=== PATIENT | female | born 1990 | race Caucasian/White ===

== ENCOUNTER 2022-09-11 16:27 | Outpatient (REF) | payer MEDICAID, SELFPAY | END 2022-09-11 16:28 | disposition home or self-care (01) | LOC: LBN 16:27 | PROVIDERS: Visit Provider Family Medicine | DX: R82.998 Other abnormal findings in urine (principal); R39.89 Other symptoms and signs involving the genitourinary system; R11.0 Nausea | CPT/HCPCS: 87086 ==

== ENCOUNTER 2022-09-20 11:00 | Outpatient (REF) | payer MEDICAID, SELFPAY | END 2022-09-20 11:01 | disposition home or self-care (01) | LOC: LBN 11:00 | PROVIDERS: Visit Provider Nurse Practitioner Family | DX: N76.0 Acute vaginitis (principal) | CPT/HCPCS: 87480; 87510; 87660 ==

== ENCOUNTER 2022-10-03 17:47 | Emergency (ER) | payer MEDICAID, SELFPAY ==
--- NOTE | 2022-10-03 17:45 | RT.EKG_ITS ---
APPROVED REPORT Exam: Resting ECG Reason for Exam: sob Patient Location: E HR:55 bpm ECG Measurements Heart Rate 55 AXIS OK 132 P 51 QRSd 77 QRS 59 QT 428 T -2 QTc 411 Conclusion Sinus bradycardia...rate< 60
[2022-10-03 18:01] VITALS: BP 106/67; PULSE 59; RESP 20; TEMP 36.9; O2SAT 99
[2022-10-03 18:16] VITALS: RESP 18
--- NOTE | 2022-10-03 18:24 | ED.GENADUL_ITS ---
Discharge Plan Disposition Patient Disposition: Home Condition: Stable Discharge Details Clinical Impression: URI (upper respiratory infection) Primary Care Provider: Shashi Beyer ED Provider: Alayna Pinto Home Meds and New Rx's Prescriptions: New metoclopramide HCl [Reglan] 5 mg tablet 5 mg PO QACHS PRN (Reason: nausea and vomiting) 7 Days Qty: 14 0RF Rx Instructions: Take one tablet by mouth before meals and at bedtime as needed for nausea. amoxicillin 500 mg capsule 500 mg PO BID 5 Days Qty: 10 0RF Rx Instructions: Take one tablet by mouth twice daily x 5 days No Action Classic 28 mg iron- 800 mcg tablet 1 tab PO DAILY Discharge Instructions Instructions: Upper Respiratory Infection (ED) Additional Instructions: Use the albuterol inhaler 1 or 2 puffs every 4 to hours as needed for wheezing. Use the nausea medication 3 times daily as vomiting. If you are not feeling better in the next 3 to 4 days you may begin antibiotics. Take the antibiotics with yogurt or probiotic. Follow up with primary care provider in 3-5 days. Return to ED sooner if any worsening or concerns. Increase oral fluids. Referrals: Shashi Beyer [Primary Care Provider] - 5 days Medical Decision Making 32-year-old female presents with chest congestion, cough. She also she is approximately 4 weeks . Prima . She has seen CHEMISTRY ASSOCIATE for this better. Denies any fever chills patient is eating well upon entering. She does smoke marijuana has a history of anxiety depression disorder and recurrent genital herpes. No other associated symtoms or concerns. Wells criteria negative for PE Is declining chest x-ray at this time, she does have some wheezes scattered bilaterally. I do suspect viral URI. However she is also requesting antibiotics. I did instruct her to use albuterol inhaler for the next few days and to only start antibiotics if improvement discussed safe medications in . I did instruct her to follow-up with her PCP or CHEMISTRY ASSOCIATE as needed. She does smoke marijuana daily I encouraged her to stop 7 days of the week she verbalized understanding. Albuterol inhaler given prescription written for amoxicillin needed. This text was generated using [employer] system, please disregard any oddities of phrase or misspellings. Differential Diagnosis Differential Diagnosis: viral URI, pneumonia, allergies HPI General Mode of arrival: ambulatory . Date/Time Provider Initiated Documentation: 10/03/22 18:06 . Limitations to Documentation: no limitations . Information obtained by: patient, RN notes reviewed and old records reviewed . HPI Narrative: 32-year-old female presents with chest congestion, cough. She also she is approximately 4 weeks . Prima . She has seen CHEMISTRY ASSOCIATE for this better. Denies any fever chills patient is eating well upon entering. She does smoke marijuana has a history of anxiety depression disorder and recurrent genital herpes. No other associated symtoms or concerns. Related Data Home Medications Medication Instructions Recorded Confirmed vits no.126-ferrous fum 1 tab PO DAILY 09/29/22 09/29/22 28 mg iron-folic acid 800 mcg tablet (Classic ) amoxicillin 500 mg capsule 500 mg PO BID uri 5 days #10 caps 10/03/22 metoclopramide HCl 5 mg tablet 5 mg PO QACHS PRN nausea and 10/03/22 (Reglan) vomiting 7 days #14 tabs Previous Rx's Medication Instructions Recorded amoxicillin 500 mg capsule 500 mg PO BID uri 5 days #10 caps 10/03/22 metoclopramide HCl 5 mg tablet 5 mg PO QACHS PRN nausea and 10/03/22 (Reglan) vomiting 7 days #14 tabs Allergies Allergy/AdvReac Type Severity Reaction Status Date / Time No Known Drug Allergies Allergy Verified 09/29/22 14:36 General Stated Complaint: GenMedical GENE: 3 Review of Systems All systems reviewed & are unremarkable except as noted in HPI and below Respiratory Respiratory: Reports chest congestion, Reports cough and Reports wheezing Gastrointestinal Gastrointestinal: Denies abdominal pain, Denies diarrhea, Reports nausea and Denies vomiting Genitourinary Genitourinary: Denies abnormal vaginal bleeding and Denies vaginal discharge Allergic/Immunologic Allergic/Immunologic: Reports wheezing PFSH All Active Problems (Updated 10/03/22 @ 18:31 by Alayna Pinto NP) URI (upper respiratory infection) (Acute) Marijuana smoker, continuous (Acute) Anxiety and depression (Chronic) History of drug abuse in remission (Acute) Pt denies opiate use or IVDA Bipolar 1 disorder (Acute) Recurrent genital HSV (herpes simplex virus) infection (Acute) (Acute) Social History Smoking risk assessment performed?: No Do you feel safe at home: Yes Do you feel safe in your relationship?: Yes History History 1 Para 0 Hx # Term Pregnancies 0 Multiple births 0 Hx # Pregnancies 0 Ectopic pregnancies 0 AB induced 0 Hx Number of Living Children 0 AB spontaneous 0 Exam Narrative Exam Narrative: Constitutional: Alert and oriented x3. Appears stated age. Normal body habitus. Head: Normocephalic, no trauma. Eyes: Pupils PERRL, Red reflex noted, EOM's intact. Eyelids symmetrical without lesions, discharge, or swelling. ENT: Bilateral TM's WNL, External ear normal to inspection, no mastoid TTP, swelling, or erythema, Nasal turbinates WNL, no nasal discharge. Normal dentition, Posterior pharynx WNL, no exudate. Chest: RRR, Normal S1, S2, distal pulses intact. Resp: Scattered expiratory wheezes bilaterally. Abdomen: Soft, non-distended, Normoactive bowel sounds all 4 quads. Musculoskeletal: Normal gait, 5/5 strength to all four extremities. Skin: No suspicious rashes or lesions. Capillary refill less than 2 sec. Neurologic: Cranial nerves II-XII intact. Alert and oriented x 3. Motor: No deficits noted. Sensory: Intact bilaterally all 4 extremities. Reflexes: DTR's intact bilaterally.. Hematologic/Lymphatic: No ecchymosis, no lymphadenopathy. Course Vital Signs Vital signs: Vital Signs Temperature 36.9 C 10/03/22 18:01 Pulse 59 L 10/03/22 18:01 Respiratory Rate 20 10/03/22 18:01 Blood Pressure 106/67 10/03/22 18:01 Pulse Oximetry 99 10/03/22 18:01 Temperature 36.9 C 10/03/22 18:01 Temperature Source Oral 10/03/22 18:01 Pulse 59 L 10/03/22 18:01 Respiratory Rate 18 10/03/22 18:16 Respiratory Effort Normal, Non-Labored 10/03/22 18:16 Respiratory Depth Normal 10/03/22 18:16 Respiratory Pattern Normal 10/03/22 18:16 Blood Pressure 106/67 10/03/22 18:01 Blood Pressure Position Sitting 10/03/22 18:01 Pulse Oximetry 99 10/03/22 18:01 Oxygen Delivery Method Room Air 10/03/22 18:01 Oxygen Flow Rate 0 10/03/22 18:01
[2022-10-03] MEDS: Albuterol HFA 8 GM 60 PUFF INH IH (18:44)
[2022-10-03] MEDS: Inhaler, Assist Device 1 EACH MC (18:45)
== END 2022-10-03 18:46 | disposition home or self-care (01) ==
PROVIDERS: Emergency Provider Registered Nurse Emergency; PCP Physician Assistant
DX: O98.811 Other maternal infectious and parasitic diseases complicating pregnancy, first trimester (principal); J06.9 Acute upper respiratory infection, unspecified
CPT/HCPCS: 93005; 99283; 93010; 99284

== ENCOUNTER 2022-10-08 21:39 | Emergency (ER) | payer MEDICAID, SELFPAY ==
[2022-10-08 21:39] VITALS: BP 123/74; PULSE 64; RESP 16; TEMP 36.4; O2SAT 99
--- NOTE | 2022-10-08 22:09 | W.ED.GENAD ---
Discharge Plan Disposition Patient Disposition: Home Condition: Improving Discharge Details Clinical Impression: Nausea Primary Care Provider: Shashi Beyer ED Provider: Huber Dutton Home Meds and New Rx's Prescriptions: New ondansetron 4 mg tablet,disintegrating 4 mg PO TID PRN (Reason: nausea and vomiting) Qty: 7 0RF No Action Classic 28 mg iron- 800 mcg tablet 1 tab PO DAILY metoclopramide HCl [Reglan] 5 mg tablet 5 mg PO QACHS PRN (Reason: nausea and vomiting) 7 Days Qty: 14 0RF Rx Instructions: Take one tablet by mouth before meals and at bedtime as needed for nausea. Discharge Instructions Instructions: Acute Nausea and Vomiting (ED) Additional Instructions: Please follow-up with your primary SENIOR CONTROLS TECHNICIAN. Please return to the emergency department for any worsening symptoms. Medical Decision Making 32-year-old female 8 weeks gestation G1, P1 confirmed IUP as outpatient presents with nausea vomiting over several days to weeks. Afebrile nontoxic abdomen soft nontender nondistended slight drying of oral mucosa. Consider hyperemesis gravidarum versus viral illness versus UTI. Patient has no vaginal discharge or bleeding. Lower suspicion for threatened . Will obtain basic labs will provide fluid hydration antiemetics close reassessment. 23: 11 patient resting comfortably feeling much better after meds. Patient will follow with primary SENIOR CONTROLS TECHNICIAN team. HPI General Date/Time Provider Initiated Documentation: 10/08/22 21:51. HPI Narrative: 32-year-old female at 8 weeks gestation positive IUP on outpatient ultrasound presents with nausea and vomiting over the past several days to weeks. Related Data Home Medications Medication Instructions Recorded Confirmed vits no.126-ferrous fum 1 tab PO DAILY 09/29/22 10/08/22 28 mg iron-folic acid 800 mcg tablet (Classic ) metoclopramide HCl 5 mg tablet 5 mg PO QACHS PRN nausea and 10/03/22 10/08/22 (Reglan) vomiting 7 days #14 tabs ondansetron 4 mg disintegrating 4 mg PO TID PRN nausea and 10/08/22 tablet vomiting #7 tabs Previous Rx's Medication Instructions Recorded metoclopramide HCl 5 mg tablet 5 mg PO QACHS PRN nausea and 10/03/22 (Reglan) vomiting 7 days #14 tabs ondansetron 4 mg disintegrating 4 mg PO TID PRN nausea and 10/08/22 tablet vomiting #7 tabs Allergies Allergy/AdvReac Type Severity Reaction Status Date / Time No Known Drug Allergies Allergy Verified 09/29/22 14:36 General Stated Complaint: Abd Prob GENE: 3 Review of Systems Narrative: Review of Systems Constitutional: negative Eyes: negative ENT: negative Cardiovascular: negative Respiratory: negative Gastrointestinal: Nausea vomiting : negative Musculoskeletal: negative Skin: negative Neurologic: negative Psych: negative PFSH All Active Problems (Updated 10/08/22 @ 23:12 by Huber Dutton MD) URI (upper respiratory infection) (Acute) Nausea (Acute) Marijuana smoker, continuous (Acute) Anxiety and depression (Chronic) History of drug abuse in remission (Acute) Pt denies opiate use or IVDA Bipolar 1 disorder (Acute) Recurrent genital HSV (herpes simplex virus) infection (Acute) (Acute) Social History Smoking risk assessment performed?: No Do you feel safe at home: Yes Do you feel safe in your relationship?: Yes History History 1 Para 0 Hx # Term Pregnancies 0 Multiple births 0 Hx # Pregnancies 0 Ectopic pregnancies 0 AB induced 0 Hx Number of Living Children 0 AB spontaneous 0 Exam Narrative Exam Narrative: Physical Examination General: alert, awake, cooperative, resting comfortably, no acute distress HEENT: normocephalic, atraumatic; PERRL, EOM intact, conjunctiva normal; no nasal discharge; slight drying of oral mucosa Neck: supple, trachea midline; full ROM Chest: normal to inspection Respiratory: normal respiratory effort, speaking in full sentences, clear to auscultation, no wheezing, rales or rhonchi Cardiac: regular rate, regular rhythm, S1S2 intact, no murmurs rubs or gallops GI: abdomen soft, non-tender, non-distended; no palpable mass or hepatosplenomegaly Skin: no lesions, rashes or trauma appreciated Neuro: AAOx3, normal speech, moving all extremities Psych: Appropriate mood and affect Course Vital Signs Vital signs: Vital Signs Temperature 36.4 C L 10/08/22 21:39 Pulse 64 10/08/22 21:39 Respiratory Rate 16 10/08/22 21:39 Blood Pressure 123/74 10/08/22 21:39 Pulse Oximetry 99 10/08/22 21:39 Temperature 36.4 C L 10/08/22 21:39 Pulse 64 10/08/22 21:39 Respiratory Rate 16 10/08/22 21:39 Blood Pressure 123/74 10/08/22 21:39 Blood Pressure Position Sitting 10/08/22 21:39 Pulse Oximetry 99 10/08/22 21:39 Oxygen Delivery Method Room Air 10/08/22 21:39 Oxygen Flow Rate 0 10/08/22 21:39 Pain Level 0 10/08/22 21:39 Lab/Test Results Lab/Test Results: POC- Test(urine) Positive
[2022-10-08] MEDS: Normal Saline 1,000 ML 1000 ML IV (22:10)
[2022-10-08 22:18] LABS: Abs Immature Grans 0.02 10^3/uL (0.0-0.06); Absolute Basophil Count 0.01 10^3/uL (0.0-0.2); Absolute Eosinophil Count 0.01 10^3/uL (0.0-0.7); Absolute Lymphocyte Count 1.97 10^3/uL (1.2-3.4); Absolute Monocyte Count 0.61 10^3/uL (0.1-0.8); Absolute Neutrophil Count 6.62 10^3/uL (1.2-6.7); Basophils % 0.1; Eosinophils % 0.1; HCT 34.4 % (36.0-46.0); HGB 12.1 g/dL (11.2-15.7); Immature Grans % 0.2; Lymphocytes % 21.3; MCH 36.7 pg (27.0-33.0); MCHC 35.2 % (32.0-36.0); MCV 104 fL (80-95); MPV 9.8 fL (8.0-11.0); Monocytes % 6.6; Neutrophils % 71.7; Platelet Count 196 10^3/uL (130-400); RDW 11.5 % (11.7-14.6); RDW-SD 44.3 fL; WBC 9.24 10^3/uL (4.4-10.8)
[2022-10-08 22:19] LABS: Bilirubin Negative (Negative); Blood Trace-intact (Negative); Clarity Clear (Clear); Glucose Negative (Negative); Ketones >=160 mg/dL (Negative); Leukocyte Esterase Negative (Negative); Nitrite Negative (Negative); Specific Gravity 1.025 (1.005-1.025); pH 6.5 (5-8)
[2022-10-08 22:22] LABS: Bacteria Few HPF (Negative); C & S Indicated? No/Sq. Contamination; Casts Negative LPF (Negative); Crystals Negative HPF (Negative); Epithelial Cells Moderate HPF (Negative); Mucus Negative (Negative); WBC 0-2 HPF (0-5)
[2022-10-08] MEDS: Ondansetron 4 MG/2 ML VIAL IVP (22:31)
[2022-10-08 22:36] LABS: ALT 16 U/L (14-59); AST 12 U/L (15-37); Albumin 4.4 g/dL (3.4-5.0); Alkaline Phosphatase 45 U/L (46-116); Anion Gap 11.3 mmol/L (3-11); BUN 13 mg/dL (7-18); Bilirubin, Total 0.5 mg/dL (0.2-1.0); CO2 24.7 mmol/L (21.0-32.0); CREATININE 0.7 mg/dL (0.55-1.02); Calcium 9.1 mg/dL (8.5-10.1); Chloride 100 mmol/L (98-107); Estimated GFR 117.77 (mL/min/1.73m2); Glucose 79 mg/dL (74-106); Lipase 38 U/L (16-77); Potassium 3.3 mmol/L (3.5-5.1); Sodium 136 mmol/L (136-145); Total Protein 8.3 g/dL (6.4-8.2)
[2022-10-08 23:30] VITALS: BP 109/61; PULSE 50; RESP 16; O2SAT 98
--- NOTE | 2022-10-08 23:58 | NUR.NOTE ---
While getting pt into room with medics pt notified RN that her bf is in the waiting room. I reassured her that once her triage was finished we would have him come back. Her boyfriend then came into ed room and stated I'm sorry but they would not let me-I know this emergency department so I know how to get in SO came back through open back doors to the ed without permission from staff. Security was alerted, supercharger mechanic was alerted.
== END 2022-10-08 23:28 | disposition home or self-care (01) ==
PROVIDERS: Emergency Provider Emergency Medicine; PCP Physician Assistant
DX: O21.9 Vomiting of pregnancy, unspecified (principal); R11.0 Nausea
CPT/HCPCS: 80053; 81025; 83690; 96361; 96374; 99284; 81003; 81015; 85025; J2405

== ENCOUNTER 2022-11-10 03:42 | Outpatient (CLI) | payer MEDICAID, SELFPAY ==
[2022-11-10 13:42] LABS: Panorama Kit Sent via Fed Ex
[2022-11-10 13:51] LABS: Abs Immature Grans 0.01 10^3/uL (0.0-0.06); Absolute Basophil Count 0.02 10^3/uL (0.0-0.2); Absolute Eosinophil Count 0.01 10^3/uL (0.0-0.7); Absolute Lymphocyte Count 1.55 10^3/uL (1.2-3.4); Absolute Monocyte Count 0.43 10^3/uL (0.1-0.8); Absolute Neutrophil Count 4.56 10^3/uL (1.2-6.7); Basophils % 0.3; Eosinophils % 0.2; HCT 32.4 % (36.0-46.0); HGB 11.2 g/dL (11.2-15.7); Immature Grans % 0.2; Lymphocytes % 23.6; MCH 36.6 pg (27.0-33.0); MCHC 34.6 % (32.0-36.0); MPV 9.5 fL (8.0-11.0); Monocytes % 6.5; Neutrophils % 69.2; Platelet Count 149 10^3/uL (130-400); RBC 3.06 10^6/uL (3.93-5.22); RDW 12.3 % (11.7-14.6); RDW-SD 48.1 fL; WBC 6.58 10^3/uL (4.4-10.8)
[2022-11-10 13:52] LABS: MCV 106 fL (80-95)
[2022-11-11 09:03] LABS: Hepatitis B Surface Ag Negative (Negative)
[2022-11-11 10:01] LABS: HIV-1/2 Ag & Ab Screen Negative (Negative)
[2022-11-11 10:18] LABS: Hepatitis C Ab w Rflx HCV PCR Negative (Negative)
[2022-11-11 11:23] LABS: Rubella IgG Ab (UVM) Positive (See Note); Varicella IgG Antibody Positive (See Note)
[2022-11-12 14:26] LABS: Syphilis IgG w/Reflex Nonreactive (Nonreactive)
== END 2022-11-10 03:43 | disposition home or self-care (01) ==
PROVIDERS: Advanced Practice Midwife; PCP Physician Assistant; Visit Provider Advanced Practice Midwife
DX: Z34.91 Encounter for supervision of normal pregnancy, unspecified, first trimester
CPT/HCPCS: 36415; 86787; 86803; 86850; 86900; 86901; 87340; 87389; 85025; 86762; 86780

== ENCOUNTER 2022-11-10 12:53 | Outpatient (REF) | payer MEDICAID, SELFPAY ==
--- NOTE | 2022-11-10 13:00 | PAPFT_PTH ---
PATIENT: Marino Mcgill LOC: [facility] U#:[id number] AGE/SX: 32/F ROOM: RE11/10/[address]: Amna Lee CNM : 1990 BED: DIS: 11/10/2022 SPEC #: [id number] RECD: 11/10/22 17:48 STATUS: EDWIGE REQ #: [id number] GERARDO: 11/10/22 13:[address]: Amna Lee DEPT: [facility] Cytology RECD BY: Erin Lawrence ENTERED: 11/10/22 17:48 SP TYPE: PAPFT OTHR DR: Shashi Beyer Tissues: 1 - CX/ENDOCX FOR PAP SMEARS Procedures: PAP THIN PREP/UVM Screening Comments: [id number] (CHLAMYDIA/GC)
[2022-11-10 14:54] LABS: *AMPHETAMINES SCREEN URINE Negative (Negative); *BARBITURATES SCREEN URINE Negative (Negative); *BENZODIAZEPINES SCREEN URINE Negative (Negative); Cannabinoids THC Positive (Negative); Cocaine Screen,Urine Negative (Negative); METHADONE URINE SCREEN Negative (Negative); OPIATES URINE SCREEN Negative (Negative)
[2022-11-10 14:55] LABS: Tricyclic Antidepressants Negative (Negative)
[2022-11-11 16:31] LABS: Chlamydia Result Negative (Negative); GC Result Negative (Negative)
[2022-11-15 08:34] LABS: Buprenorphine Negative ng/mL (Cutoff: 5.0); Norbuprenorphine Negative ng/mL (Cutoff: 2.5)
== END 2022-11-10 12:54 | disposition home or self-care (01) ==
LOC: LBN 12:53
PROVIDERS: PCP Physician Assistant; Visit Provider Advanced Practice Midwife
DX: Z34.91 Encounter for supervision of normal pregnancy, unspecified, first trimester; R82.998 Other abnormal findings in urine
CPT/HCPCS: 80307; 80348; 87491; 87591; 88142; 87086

== ENCOUNTER 2022-11-18 13:39 | Emergency (ER) | payer MEDICAID, SELFPAY ==
[2022-11-18 13:46] VITALS: BP 124/59; PULSE 82; RESP 18; TEMP 37.1; O2SAT 99
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
--- NOTE | 2022-11-18 14:26 | NUR.NOTE ---
Nursing Note: Pt eloped immediately after provider spoke to pt. Provider aware and provider spoke to pt in [place] before leaving.
[2022-11-18 14:41] LABS: Glucose Negative (Negative); Leukocyte Esterase Negative (Negative); Nitrite Negative (Negative); Specific Gravity 1.025 (1.005-1.025)
[2022-11-18 14:42] LABS: Bilirubin Small (Negative); Blood Trace-intact (Negative); Clarity Sl Cloudy (Clear); Ketones Trace mg/dL (Negative)
[2022-11-18 14:43] LABS: Bacteria Few HPF (Negative); C & S Indicated? No/Sq. Contamination; Casts 3-5 Hyaline LPF (Negative); Crystals Negative HPF (Negative); Epithelial Cells Many HPF (Negative); Mucus Negative (Negative); RBC 0-2 HPF (0-2); WBC Negative HPF (0-5)
[2022-11-18 14:44] LABS: *AMPHETAMINES SCREEN URINE Negative (Negative); *BENZODIAZEPINES SCREEN URINE Negative (Negative); Cannabinoids THC Positive (Negative); Cocaine Screen,Urine Negative (Negative); METHADONE URINE SCREEN Negative (Negative)
[2022-11-18 14:45] LABS: *BARBITURATES SCREEN URINE Negative (Negative); OPIATES URINE SCREEN Negative (Negative); Tricyclic Antidepressants Negative (Negative)
== END 2022-11-18 14:30 | disposition left against medical advice (07) ==
PROVIDERS: Emergency Provider Registered Nurse Emergency; PCP Nurse Practitioner Family
DX: R10.11 Right upper quadrant pain (principal); R11.10 Vomiting, unspecified; Z53.29 Procedure and treatment not carried out because of patient's decision for other reasons
CPT/HCPCS: 80307; 99283; 81003; 81015

== ENCOUNTER 2022-12-07 19:07 | Emergency (ER) | payer MEDICAID, SELFPAY ==
[2022-12-07 19:28] VITALS: BP 104/64; PULSE 59; RESP 20; TEMP 36.8; O2SAT 99
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
--- NOTE | 2022-12-07 20:09 | NUR.NOTE ---
Pt placed on care management referral list for [facility] for abdominal trauma to be seen within 1 week.
== END 2022-12-07 20:21 | disposition home or self-care (01) ==
PROVIDERS: Emergency Provider Emergency Medicine; PCP Nurse Practitioner Family
DX: S39.81XA Other specified injuries of abdomen, initial encounter (principal); X58.XXXA Exposure to other specified factors, initial encounter; Z33.1 Pregnant state, incidental; M79.601 Pain in right arm
CPT/HCPCS: 99283; 99282

== ENCOUNTER 2022-12-14 15:29 | Outpatient (CLI) | payer MEDICAID, SELFPAY ==
[2022-12-14 14:44] LABS: FREE T4 0.58 ng/dL (0.76-1.46); TSH 88.28 uIU/mL (0.36-3.74)
[2022-12-14 14:56] LABS: Vitamin D 25 Total 25.4 ng/mL (30-100)
[2022-12-14 15:33] LABS: Vitamin B12 466 pg/mL (193-986)
[2022-12-14 22:14] LABS: T3, Total 195 ng/dL (97-169)
== END 2022-12-14 15:30 | disposition home or self-care (01) ==
LOC: LBO 15:29
PROVIDERS: PCP Nurse Practitioner Family; Visit Provider Registered Nurse
DX: F31.89 Other bipolar disorder (principal); Z79.899 Other long term (current) drug therapy
CPT/HCPCS: 36415; 82306; 82607; 84439; 84443; 84480

== ENCOUNTER 2022-12-29 11:59 | Outpatient (CLI) | payer MEDICAID, SELFPAY ==
[2022-12-29 12:28] VITALS: BP 109/52; PULSE 54; RESP 15; TEMP 36.6; O2SAT 99
[2022-12-29 12:33] LABS: Bilirubin Negative (Negative); Blood Trace-intact (Negative); Clarity Sl Cloudy (Clear); Glucose Negative (Negative); Ketones Trace mg/dL (Negative); Leukocyte Esterase Negative (Negative); Nitrite Negative (Negative); Specific Gravity >= 1.030 (1.005-1.025)
[2022-12-29 12:39] LABS: Bacteria Few HPF (Negative); C & S Indicated? No; Casts Negative LPF (Negative); Crystals Negative HPF (Negative); Epithelial Cells Many HPF (Negative); Mucus Negative (Negative); RBC 0-2 HPF (0-2); WBC Negative HPF (0-5)
[2022-12-29] MEDS: Acetaminophen 500 MG TAB 1000 MG PO (12:50)
[2022-12-29] MEDS: Lactated Ringers 1,000 ML 999 ML IV (12:51)
== END 2022-12-29 13:58 | disposition home or self-care (01) ==
LOC: BCD 11:59 → OBS 12:19
PROVIDERS: PCP Nurse Practitioner Family; Visit Provider Advanced Practice Midwife
DX: O36.8320 Maternal care for abnormalities of the fetal heart rate or rhythm, second trimester, not applicable or unspecified (principal)
CPT/HCPCS: 96360; 81003; 81015

== ENCOUNTER 2022-12-31 12:47 | Emergency (ER) | payer MEDICAID, SELFPAY ==
[2022-12-31 13:00] VITALS: BP 115/55; PULSE 55; RESP 20; TEMP 36.9; O2SAT 100
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
[2022-12-31] MEDS: Acetaminophen 500 MG TAB 1000 MG PO (14:39)
== END 2022-12-31 14:42 | disposition home or self-care (01) ==
PROVIDERS: Emergency Provider Emergency Medicine; PCP Nurse Practitioner Family
DX: O26.92 Pregnancy related conditions, unspecified, second trimester (principal); Z3A.19 19 weeks gestation of pregnancy
CPT/HCPCS: 93308; 99283

== ENCOUNTER 2023-01-16 09:32 | Emergency (ER) | payer MEDICAID, SELFPAY ==
[2023-01-16 09:37] VITALS: BP 103/56; PULSE 62; RESP 20; TEMP 36.9; O2SAT 99
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
== END 2023-01-16 10:23 | disposition home or self-care (01) ==
PROVIDERS: Emergency Provider Emergency Medicine; PCP Nurse Practitioner Family
DX: O20.9 Hemorrhage in early pregnancy, unspecified (principal)
CPT/HCPCS: 99282

== ENCOUNTER 2023-01-17 14:56 | Outpatient (REF) | payer MEDICAID, SELFPAY | END 2023-01-17 14:57 | disposition home or self-care (01) | LOC: LBN 14:56 | PROVIDERS: PCP Nurse Practitioner Family; Visit Provider Advanced Practice Midwife | DX: O46.92 Antepartum hemorrhage, unspecified, second trimester (principal) | CPT/HCPCS: 87480; 87510; 87660 ==

== ENCOUNTER 2023-01-28 02:21 | Outpatient (CLI) | payer MEDICAID, SELFPAY ==
[2023-01-28 13:57] LABS: TSH (W/Ref FT4) 12.54 uIU/mL (0.36-3.74)
== END 2023-01-28 02:22 | disposition home or self-care (01) ==
LOC: LBO 02:22
PROVIDERS: PCP Nurse Practitioner Family; Visit Provider Advanced Practice Midwife
DX: R79.89 Other specified abnormal findings of blood chemistry (principal); F31.30 Bipolar disorder, current episode depressed, mild or moderate severity, unspecified; F43.10 Post-traumatic stress disorder, unspecified
CPT/HCPCS: 36415; 84439; 84443

== ENCOUNTER → 2023-02-15 00:47 | Outpatient (CLI) | payer MEDICAID, SELFPAY ==
--- NOTE | 2023-02-15 08:09 | DI.US_ITS ---
Exam(s) US OB ETHAN WEIGHT EXAM: US OB ETHAN WEIGHT CLINICAL HISTORY: growth and ETHAN,r79.89. TECHNIQUE: Transabdominal obstetrical ultrasound was performed. COMPARISON: US POCUS EXAM from 12/31/2022 FINDINGS: There is a single viable intrauterine gestation with cardiac activity identified-144 bpm The fetus is presently in cephalic position . Amniotic fluid: There is a normal amount of amniotic fluid with an ETHAN of 14.3cm. Placental location: The placenta is posterior grade 1,with no evidence of placenta previa. Dating parameters place this at approximately 26 weeks and 1 day gestational age, implying PATO of 05/23/2023. BPD measures 26 weeks and 6 days HC measures 26 weeks and 4 days AC measures 26 weeks and 1 day FL measures 24 weeks and 5 days Estimated weight is 849 gm-1 pound 14 ounces Fetus is at the 24th percentile on the Hadlock scale. IMPRESSION:: Viable intrauterine gestation, as described above. ETHAN= 14.3 cm which is within normal limits Fetus is at the 24th percentile on the Hadlock scale. DATA REPOSITORY:
== END ==
PROVIDERS: PCP Nurse Practitioner Family; Visit Provider Advanced Practice Midwife
DX: Z34.92 Encounter for supervision of normal pregnancy, unspecified, second trimester
CPT/HCPCS: 76816

== ENCOUNTER 2023-03-01 03:01 | Outpatient (CLI) | payer MEDICAID, SELFPAY ==
[2023-03-01 12:55] LABS: HCT 26.3 % (36.0-46.0); MCH 38.5 pg (27.0-33.0); MCHC 34.2 % (32.0-36.0); MCV 112 fL (80-95); MPV 9.4 fL (8.0-11.0); Platelet Count 111 10^3/uL (130-400); RBC 2.34 10^6/uL (3.93-5.22); RDW 12.8 % (11.7-14.6); WBC 8.37 10^3/uL (4.4-10.8)
[2023-03-01 13:07] LABS: Glucose,1 Hr (Glucola) 82 mg/dL (80-140)
[2023-03-01 13:21] LABS: TSH (W/Ref FT4) 45.54 uIU/mL (0.36-3.74)
[2023-03-01 13:41] LABS: FREE T4 0.67 ng/dL (0.76-1.46)
== END 2023-03-01 03:02 | disposition home or self-care (01) ==
LOC: LBO 03:01
PROVIDERS: PCP Nurse Practitioner Family; Visit Provider Advanced Practice Midwife
DX: Z34.93 Encounter for supervision of normal pregnancy, unspecified, third trimester (principal); R79.89 Other specified abnormal findings of blood chemistry
CPT/HCPCS: 36415; 82950; 85027; 84439; 84443

== ENCOUNTER 2023-03-02 13:49 | Outpatient (REF) | payer MEDICAID, SELFPAY ==
[2023-03-02 14:03] LABS: *AMPHETAMINES SCREEN URINE Negative (Negative); *BARBITURATES SCREEN URINE Negative (Negative); *BENZODIAZEPINES SCREEN URINE Negative (Negative); Cannabinoids THC Positive (Negative); Cocaine Screen,Urine Negative (Negative); METHADONE URINE SCREEN Negative (Negative); OPIATES URINE SCREEN Negative (Negative)
[2023-03-02 14:05] LABS: Tricyclic Antidepressants Negative (Negative)
[2023-03-09 09:20] LABS: Buprenorphine Negative ng/mL (Cutoff: 5.0)
== END 2023-03-02 13:50 | disposition home or self-care (01) ==
LOC: LBN 13:49
PROVIDERS: PCP Nurse Practitioner Family; Visit Provider Obstetrics & Gynecology Gynecology
DX: Z34.93 Encounter for supervision of normal pregnancy, unspecified, third trimester (principal)
CPT/HCPCS: 80307; 80348

== ENCOUNTER → 2023-03-10 00:58 | Outpatient (CLI) | payer MEDICAID, SELFPAY ==
--- NOTE | 2023-03-10 07:30 | DI.US_ITS ---
Exam(s) US OB ETHAN WEIGHT EXAM: US OB ETHAN WEIGHT CLINICAL HISTORY: ETHAN and weight,elev tsh,marijuana user,z34.90. TECHNIQUE: Transabdominal obstetrical ultrasound performed. COMPARISON: No exams were available for comparison FINDINGS: Number of fetuses: 1 position: POSTERIOR Placental location: Varied throughout the examination. No evidence of previa. BIOMETRIC DATA: BPD: 7.31 cm, 29 weeks 2 days HC: 27.63 cm, 30 weeks 1 day AC: 25.39 cm, 29 weeks 4 days FL: 5.3 cm, 28 weeks 1 day EFW: 1345.72 g, 2 lb 15 oz, 27.8 % Composite Age: 29 weeks 2 days PATO: 05/24/2023 Heart Rate: 161 bpm Amniotic fluid index: 13.86 cm. Visually, amount of fluid is within normal limits. IMPRESSION: 1. Single live intrauterine gestation as above. 2. Estimated weight is 1346gms. This is the 28th percentile. 3. Amniotic fluid index is 13.9 cm. Visually within normal limits. DATA REPOSITORY:
== END ==
PROVIDERS: PCP Nurse Practitioner Family; Visit Provider Advanced Practice Midwife
DX: R79.89 Other specified abnormal findings of blood chemistry; Z34.93 Encounter for supervision of normal pregnancy, unspecified, third trimester
CPT/HCPCS: 76816

== ENCOUNTER 2023-03-23 18:02 | Observation (INO) | payer MEDICAID, SELFPAY ==
[2023-03-23 17:05] VITALS: BP 109/65; PULSE 51
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
[2023-03-23 17:24] LABS: Source Nasal/Nares
[2023-03-23 17:28] VITALS: TEMP 36.6; O2SAT 98
[2023-03-23 17:29] LABS: Bilirubin Negative (Negative); Blood Negative (Negative); Clarity Clear (Clear); Glucose Negative (Negative); Ketones 40 mg/dL (Negative); Leukocyte Esterase Negative (Negative); Nitrite Negative (Negative)
[2023-03-23 17:47] LABS: *AMPHETAMINES SCREEN URINE Negative (Negative); *BARBITURATES SCREEN URINE Negative (Negative); *BENZODIAZEPINES SCREEN URINE Negative (Negative); Cannabinoids THC Positive (Negative); Cocaine Screen,Urine Negative (Negative); METHADONE URINE SCREEN Negative (Negative); OPIATES URINE SCREEN Negative (Negative)
[2023-03-23 17:50] LABS: Tricyclic Antidepressants Negative (Negative)
[2023-03-23 17:52] LABS: Abs Immature Grans 0.06 10^3/uL (0.0-0.06); Absolute Basophil Count 0.02 10^3/uL (0.0-0.2); Absolute Eosinophil Count 0.02 10^3/uL (0.0-0.7); Absolute Monocyte Count 0.53 10^3/uL (0.1-0.8); Absolute Neutrophil Count 6.05 10^3/uL (1.2-6.7); Basophils % 0.2; Eosinophils % 0.2; HCT 25.4 % (36.0-46.0); HGB 8.8 g/dL (11.2-15.7); Immature Grans % 0.7; Lymphocytes % 21.2; MCH 37.8 pg (27.0-33.0); MCHC 34.6 % (32.0-36.0); MPV 9.8 fL (8.0-11.0); Monocytes % 6.3; Neutrophils % 71.4; Platelet Count 107 10^3/uL (130-400); RBC 2.33 10^6/uL (3.93-5.22); RDW 12.4 % (11.7-14.6); WBC 8.48 10^3/uL (4.4-10.8)
[2023-03-23 17:55] LABS: COVID-19 PCR Negative (Negative)
[2023-03-23 18:07] LABS: Diff Comment RBC Morph Reviewed; MCV 109 fL (80-95); Macrocytosis 3+
[2023-03-23 18:14] LABS: ALT 13 U/L (14-59); AST 17 U/L (15-37); Albumin 2.9 g/dL (3.4-5.0); Alkaline Phosphatase 63 U/L (46-116); Anion Gap 12.2 mmol/L (3-11); BUN 10 mg/dL (7-18); Bilirubin, Total 0.3 mg/dL (0.2-1.0); CO2 20.8 mmol/L (21.0-32.0); CREATININE 0.7 mg/dL (0.55-1.02); Calcium 8.4 mg/dL (8.5-10.1); Chloride 105 mmol/L (98-107); Estimated GFR 117.77 (mL/min/1.73m2); Glucose 84 mg/dL (74-106); Potassium 3.3 mmol/L (3.5-5.1); Sodium 138 mmol/L (136-145); Total Protein 6.4 g/dL (6.4-8.2)
[2023-03-23] MEDS: Lactated Ringers 500 ML 1000 ML IV (18:27)
[2023-03-23] MEDS: Betamet Acet/Betamet Na Ph Inj. 30 MG/5 ML 12 MG IM (18:28)
[2023-03-23] MEDS: Normal Saline Flush 10 ML SYR IVP (18:28)
[2023-03-23 18:41] VITALS: TEMP 36.6; O2SAT 98
[2023-03-23 18:44] VITALS: BP 109/65; PULSE 51; TEMP 36.9
[2023-03-23 19:05] LABS: Fetal Fibronectin Negative (Negative)
[2023-03-23 20:05] LABS: COMMENT (LAB VIEW ONLY) 72.14 mg/dL; PROTEIN 14.6 mg/dL
[2023-03-23 22:10] LABS: COVID-19 PCR Negative (Negative); Influenza A PCR Negative (Negative); Influenza B PCR Negative (Negative); RSV PCR Negative (Negative)
[2023-03-23 22:11] LABS: Source Nasopharynx
[2023-03-24 04:08] VITALS: BP 120/64; PULSE 88; RESP 18; TEMP 36.7
--- NOTE | 2023-03-24 04:21 | NUR.NOTE ---
Patient rang to say that she had taken her own Levothyroxine for the morning.
[2023-03-24 08:30] VITALS: BP 101/57; PULSE 57; RESP 14; TEMP 36.8
[2023-03-24] MEDS: metroNIDAZOLE 500 MG TAB PO (09:24)
--- NOTE | 2023-03-24 09:56 | W.OBNST ---
Date of service: 03/23/23 Time of Service: 09:56 NST Evaluation Reason for NST Reasons for Nonstress Test: LABOR Gestational Age Gestational Age in Weeks and Days: 31 Weeks and 2Days Test and Monitor Explained Test/Monitor Explained: Test Explained, Monitor Explained and Patient Verbalized Understanding Vital Signs Blood Pressure: 109/65 Pulse: 51 Temperature: 98.4 F Urine Results Urine Protein: Negative Urine Ketones: Positive Urine Glucose: Negative Urine Blood: Negative NST Information Date on Monitor: 03/23/23 Time on Monitor: 17:04 Date off Monitor: 03/23/23 Time off Monitor: 17:43 Total Time on Monitor: 39 NST Interventions: PO Hydration, IV Fluids, Meal Given, Reposition Patient and Notify Provider Contraction Frequency: Pt reports Q5-6 NST Evaluation Patient States Movement: Present FHR Baseline: 135 Variability: Moderate 6-25 bpm Accelerations: 15x15 Decelerations: None NST Results: Reactive Note Ultrasound Done: N/A. NST Note Note: Bennett came in and reported cramping. Reactiv eNST. She was reporting cramping every 5-6 minutes. Urine dip showed ketones and signs of dehydration. She was admitted for labor. NST Reviewed and Verified by: Delores Lopez
[2023-03-24 09:58] VITALS: BP 109/65; PULSE 51; TEMP 36.9
[2023-03-24 10:17] LABS: HCT 25.1 % (36.0-46.0); HGB 8.8 g/dL (11.2-15.7); MCH 37.9 pg (27.0-33.0); MCHC 35.1 % (32.0-36.0); MCV 108 fL (80-95); MPV 9.5 fL (8.0-11.0); Platelet Count 101 10^3/uL (130-400); RBC 2.32 10^6/uL (3.93-5.22); RDW 12.2 % (11.7-14.6); RDW-SD 47.7 fL
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
[2023-03-24 13:13] LABS: Lab Add On Test DONE
[2023-03-24 13:20] LABS: Iron 91 ug/dL (50-170); Total Iron Binding Capacity 330 ug/dL (250-450)
[2023-03-24 13:33] LABS: Ferritin 86 ng/mL (8-252)
[2023-03-24 13:51] LABS: Lab Add On Test DONE
[2023-03-24 13:57] LABS: Abs Immature Grans 0.08 10^3/uL (0.0-0.06); Absolute Basophil Count 0.01 10^3/uL (0.0-0.2); Absolute Lymphocyte Count 0.82 10^3/uL (1.2-3.4); Absolute Monocyte Count 0.47 10^3/uL (0.1-0.8); Absolute Neutrophil Count 8.25 10^3/uL (1.2-6.7); Basophils % 0.1; Immature Grans % 0.8; Lymphocytes % 8.5; Monocytes % 4.9; Neutrophils % 85.7
== END 2023-03-24 10:41 | disposition home or self-care (01) ==
LOC: BCD 18:12 → OBS 18:12
PROVIDERS: Admitting Provider Advanced Practice Midwife; PCP Nurse Practitioner Family; Visit Provider Advanced Practice Midwife
DX: O60.03 Preterm labor without delivery, third trimester; Z3A.31 31 weeks gestation of pregnancy; O99.323 Drug use complicating pregnancy, third trimester; F12.90 Cannabis use, unspecified, uncomplicated; O99.283 Endocrine, nutritional and metabolic diseases complicating pregnancy, third trimester; E03.9 Hypothyroidism, unspecified; O98.313 Other infections with a predominantly sexual mode of transmission complicating pregnancy, third trimester; A60.00 Herpesviral infection of urogenital system, unspecified; O99.013 Anemia complicating pregnancy, third trimester; D64.9 Anemia, unspecified; O99.343 Other mental disorders complicating pregnancy, third trimester; F31.9 Bipolar disorder, unspecified; R11.0 Nausea; O99.613 Diseases of the digestive system complicating pregnancy, third trimester; O26.893 Other specified pregnancy related conditions, third trimester; N89.8 Other specified noninflammatory disorders of vagina
CPT/HCPCS: 36415; 80053; 80307; 85027; 86850; 86900; 86901; 87635; 87637; 81003; 82565; 82728; 82731; 82746; 83540; 83550; 84156; 85007; 85025; 87081; 87086; 87480; 87510; 87660; J0702

== ENCOUNTER 2023-03-24 13:33 | Outpatient (CLI) | payer MEDICAID, SELFPAY ==
[2023-03-24 16:29] VITALS: BP 103/55; PULSE 57; TEMP 36.8
[2023-03-24 16:35] VITALS: BP 103/55; PULSE 57; TEMP 36.8
[2023-03-24] MEDS: Betamet Acet/Betamet Na Ph Inj. 30 MG/5 ML 12 MG IM (17:02)
[2023-03-24 17:15] LABS: FREE T4 0.86 ng/dL (0.76-1.46); TSH 8.88 uIU/mL (0.36-3.74)
--- NOTE | 2023-03-24 17:41 | W.OBNST ---
Date of service: 03/24/23 Time of Service: 17:41 NST Evaluation Reason for NST Reasons for Nonstress Test: FALSE LABOR Gestational Age Gestational Age in Weeks and Days: 31 Weeks and 3Days Test and Monitor Explained Test/Monitor Explained: Test Explained Vital Signs Blood Pressure: 103/55 Pulse: 57 Temperature: 98.2 F NST Information Date on Monitor: 03/24/23 Time on Monitor: 16:32 Date off Monitor: 03/24/23 Time off Monitor: 17:15 Total Time on Monitor: 43 NST Interventions: PO Hydration NST Evaluation Patient States Movement: Present FHR Baseline: 125 Variability: Moderate 6-25 bpm Accelerations: 15x15 and 10x10 Decelerations: Variable NST Results: Reactive Note Ultrasound Done: N/A. NST Note Note: Sabrina is here for NST and betamethasone. She was admitted last night for labor and returns for second betamethasone injection. She denies contractions. She has not started metronidazole treatment yet. B12 TSH and Folate drawn. TSH is 8.88. results forwarded to Dr Velasquez to advise regarding levothyroxine dose. She was advised to start BV treatment tonight. NST Reviewed and Verified by: Delores Lopez
[2023-03-24 17:43] VITALS: BP 103/55; PULSE 57; TEMP 36.8
[2023-03-24 17:46] LABS: Folate > 20.0 ng/mL (8.6-20.0)
[2023-03-24 17:53] LABS: Vitamin B12 518 pg/mL (193-986)
== END 2023-03-24 17:15 | disposition home or self-care (01) ==
LOC: BCD 16:09 → OBS 16:22
PROVIDERS: PCP Nurse Practitioner Family; Visit Provider Advanced Practice Midwife
DX: O60.03 Preterm labor without delivery, third trimester (principal); Z3A.31 31 weeks gestation of pregnancy
CPT/HCPCS: 96372; 59025; 82607; 82746; 84439; 84443; J0702

== ENCOUNTER 2023-03-31 03:03 | Outpatient (CLI) | payer MEDICAID, SELFPAY ==
[2023-04-01 15:46] LABS: Hemoglobinopathy Interpretat (See Note)
== END 2023-03-31 03:04 | disposition home or self-care (01) ==
LOC: LBO 03:03
PROVIDERS: Advanced Practice Midwife; PCP Nurse Practitioner Family; Visit Provider Obstetrics & Gynecology Gynecology
DX: D69.6 Thrombocytopenia, unspecified; E03.9 Hypothyroidism, unspecified; O99.283 Endocrine, nutritional and metabolic diseases complicating pregnancy, third trimester; R79.89 Other specified abnormal findings of blood chemistry
CPT/HCPCS: 36415; 83020

== ENCOUNTER → 2023-04-07 00:11 | Outpatient (CLI) | payer MEDICAID, SELFPAY ==
--- NOTE | 2023-04-07 08:15 | DI.US_ITS ---
Exam(s) US OB ETHAN WEIGHT EXAM: US OB ETHAN WEIGHT CLINICAL HISTORY: ETHAN and growth,elevated tsh,cannabis use. TECHNIQUE: Transabdominal obstetrical ultrasound performed. COMPARISON: US US OB ETHAN WEIGHT from 02/15/2023 US US OB ETHAN WEIGHT from 03/10/2023 FINDINGS:: Number of fetuses: One. position: Vertex. Placental location: Posterior. No evidence of previa. BIOMETRIC DATA: BPD: 81mm = 32+5 weeks HC: 302mm = 33+4 weeks AC: 284mm = 32+3 weeks FL: 61 mm = 31+3 weeks EFW: 1943 Gms = 14% Composite Age: 32+4 weeks PATO: June 04 Heart Rate: 118BPM Amniotic fluid index: 12.4 cm. Amount of fluid is visually within normal limits. IMPRESSION: size and weight are within the low normal range.. DATA REPOSITORY:
== END ==
PROVIDERS: PCP Nurse Practitioner Family; Visit Provider Advanced Practice Midwife
DX: Z34.93 Encounter for supervision of normal pregnancy, unspecified, third trimester
CPT/HCPCS: 76816

== ENCOUNTER 2023-04-28 04:13 | Outpatient (CLI) | payer MEDICAID, SELFPAY ==
[2023-04-28 11:08] LABS: Abs Immature Grans 0.05 10^3/uL (0.0-0.06); Absolute Basophil Count 0.02 10^3/uL (0.0-0.2); Absolute Eosinophil Count 0.01 10^3/uL (0.0-0.7); Absolute Lymphocyte Count 1.53 10^3/uL (1.2-3.4); Absolute Monocyte Count 0.47 10^3/uL (0.1-0.8); Absolute Neutrophil Count 6.18 10^3/uL (1.2-6.7); Basophils % 0.2; Eosinophils % 0.1; HCT 27.7 % (36.0-46.0); HGB 9.6 g/dL (11.2-15.7); Immature Grans % 0.6; Lymphocytes % 18.5; MCH 38.1 pg (27.0-33.0); MCHC 34.7 % (32.0-36.0); MPV 10.2 fL (8.0-11.0); Monocytes % 5.7; Neutrophils % 74.9; Platelet Count 110 10^3/uL (130-400); RBC 2.52 10^6/uL (3.93-5.22); RDW 12.5 % (11.7-14.6); WBC 8.26 10^3/uL (4.4-10.8)
[2023-04-28 11:10] LABS: MCV 110 fL (80-95)
[2023-04-28 12:52] LABS: FREE T4 1.03 ng/dL (0.76-1.46)
== END 2023-04-28 04:14 | disposition home or self-care (01) ==
LOC: LBO 04:13
PROVIDERS: PCP Nurse Practitioner Family; Visit Provider Advanced Practice Midwife
DX: E03.9 Hypothyroidism, unspecified (principal); O99.013 Anemia complicating pregnancy, third trimester; O99.283 Endocrine, nutritional and metabolic diseases complicating pregnancy, third trimester
CPT/HCPCS: 36415; 84439; 84443; 85025

== ENCOUNTER 2023-04-28 12:29 | Outpatient (REF) | payer MEDICAID, SELFPAY ==
[2023-04-28 13:26] LABS: *AMPHETAMINES SCREEN URINE Negative (Negative); *BARBITURATES SCREEN URINE Negative (Negative); *BENZODIAZEPINES SCREEN URINE Negative (Negative); Cannabinoids THC Positive (Negative); Cocaine Screen,Urine Negative (Negative); METHADONE URINE SCREEN Negative (Negative); OPIATES URINE SCREEN Negative (Negative)
[2023-04-28 13:28] LABS: Tricyclic Antidepressants Negative (Negative)
[2023-05-09 13:47] LABS: Buprenorphine Negative ng/mL (Cutoff: 5.0)
== END 2023-04-28 12:30 | disposition home or self-care (01) ==
LOC: LBN 12:29
PROVIDERS: PCP Nurse Practitioner Family; Visit Provider Advanced Practice Midwife
DX: Z34.93 Encounter for supervision of normal pregnancy, unspecified, third trimester (principal)
CPT/HCPCS: 80307; 80348; 87081

== ENCOUNTER 2023-04-29 08:31 | Outpatient (CLI) | payer MEDICAID, SELFPAY ==
[2023-04-29 09:07] VITALS: BP 104/58; PULSE 58; TEMP 36.7
[2023-04-29 09:08] VITALS: BP 104/58; PULSE 58
[2023-04-29] MEDS: Lactated Ringers 1,000 ML 1000 ML IV (09:33)
--- NOTE | 2023-04-29 09:50 | W.OBNST ---
Date of service: 04/29/23 Time of Service: 09:30 NST Evaluation Reason for NST Reasons for Nonstress Test: OTHER, SEE COMMENT Reason for NST Other: wellbeing Gestational Age Gestational Age in Weeks and Days: 36 Weeks and 4Days Test and Monitor Explained Test/Monitor Explained: Test Explained, Monitor Explained and Patient Verbalized Understanding Vital Signs Blood Pressure: 104/58 Pulse: 58 Temperature: 98.0 F Urine Results Urine Protein: Positive Urine Ketones: Positive Urine Glucose: Negative Urine Blood: Negative NST Information Date on Monitor: 04/29/23 Time on Monitor: 09:06 Date off Monitor: 04/29/23 Time off Monitor: 09:27 Total Time on Monitor: 21 NST Interventions: PO Hydration and IV Fluids Contraction Frequency: x1 NST Evaluation Patient States Movement: Present FHR Baseline: 120 Variability: Moderate 6-25 bpm Accelerations: 15x15 Decelerations: None NST Results: Reactive Note Ultrasound Done: N/A (see separate POCUS note by Dr. Blanchard for today). NST Note Note: NST is reactive and reassuring. Dr. Blanchard will do ETHAN today as we are unable to get growth US in DI today. She does have one scheduled for 05/05/[address] Blanchard also done in relation to Levothyroxine dose, Sabrina has been taking 112mcg since 31 weeks, will increase today to 137mcg and new RX was sent. I reviewed that Sabrina is taking the medication before eating in the morning and she verbalizes she dose take it daily like that. IV iron infusion given today, will schedule repeat in 1 week with NST. SELMA NST Reviewed and Verified by: Delores Canales
[2023-04-29 09:53] VITALS: BP 104/58; PULSE 58; TEMP 36.7
[2023-04-29] MEDS: IRON SUCROSE COMPLEX 200 MG in Normal Saline 100 ML 400 MG IVPB (09:55)
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
[2023-04-29 10:42] VITALS: BMI 28.3
[2023-04-29 12:13] LABS: *AMPHETAMINES SCREEN URINE Negative (Negative); *BARBITURATES SCREEN URINE Negative (Negative); *BENZODIAZEPINES SCREEN URINE Negative (Negative); Cannabinoids THC Positive (Negative); Cocaine Screen,Urine Negative (Negative); METHADONE URINE SCREEN Negative (Negative); OPIATES URINE SCREEN Negative (Negative)
[2023-04-29 12:15] LABS: Tricyclic Antidepressants Negative (Negative)
--- NOTE | 2023-04-29 16:45 | W.OBNST ---
Date of service: 04/29/23 Time of Service: 11:00 NST Evaluation Reason for NST Reasons for Nonstress Test: OTHER, SEE COMMENT Reason for NST Other: wellbeing Gestational Age Gestational Age in Weeks and Days: 36 Weeks and 4Days Test and Monitor Explained Test/Monitor Explained: Test Explained, Monitor Explained and Patient Verbalized Understanding Vital Signs Blood Pressure: 104/58 Pulse: 58 Temperature: 98.0 F Urine Results Urine Protein: Positive Urine Ketones: Positive Urine Glucose: Negative Urine Blood: Negative NST Information Date on Monitor: 04/29/23 Time on Monitor: 09:06 Date off Monitor: 04/29/23 Time off Monitor: 09:27 Total Time on Monitor: 21 NST Interventions: PO Hydration and IV Fluids Contraction Frequency: x1 NST Evaluation Patient States Movement: Present FHR Baseline: 120 Variability: Moderate 6-25 bpm Accelerations: 15x15 Decelerations: None NST Results: Reactive Note Ultrasound Done: ETHAN Indication: Other (IUGR) Total ETHAN: 8.65 Other Pertinent Findings: Heart Rate and Presentation (vertex) Coding for ETHAN w/NST: Completed Exam. NST Note NST Reviewed and Verified by: Grace Blanchard
[2023-04-29 16:46] VITALS: BP 104/58; PULSE 58; TEMP 36.7
== END 2023-04-29 11:00 ==
LOC: BCD 08:31 → OBS 08:51
PROVIDERS: Advanced Practice Midwife; PCP Nurse Practitioner Family; Visit Provider Advanced Practice Midwife
DX: F12.90 Cannabis use, unspecified, uncomplicated (principal); Z34.93 Encounter for supervision of normal pregnancy, unspecified, third trimester; Z3A.36 36 weeks gestation of pregnancy
CPT/HCPCS: 80307; 87491; 87591; 96360; 96361; 96365; 59025; J1756

== ENCOUNTER → 2023-05-05 02:15 | Outpatient (CLI) | payer MEDICAID, SELFPAY ==
--- NOTE | 2023-05-05 07:30 | DI.US_ITS ---
Exam(s) US OB ETHAN WEIGHT EXAM: US OB ETHAN WEIGHT CLINICAL HISTORY: ETHAN and weight,elevated tsh,letitia smoker,r79.89. TECHNIQUE: Transabdominal obstetrical ultrasound performed. COMPARISON: US US OB ETHAN WEIGHT from 04/07/2023 FINDINGS: Number of fetuses: 1 position: CEPHALIC Placental location: There is a posterior grade 2 placenta present. No evidence of previa. BIOMETRIC DATA: BPD: 8.73cm, 35weeks 2days HC: 32.52cm, 36weeks 6days AC: 32.29cm, 36weeks 1day FL: 6.88cm, 35weeks 2days EFW: 2,807.88g, 6lb 3.52oz, 21.6% Composite Age: 35weeks 6days PATO: 06/03/2023 Heart Rate: 140bpm Amniotic fluid index: 14.83cm. Visually, amount of fluid is within normal limits. IMPRESSION: 1. Single live intrauterine gestation as above. 2. Estimated weight is 2808gms. This is the bony 22nd percentile. 3. Amniotic fluid index is 14.8 cm. Visually within normal limits. DATA REPOSITORY:
== END ==
PROVIDERS: PCP Nurse Practitioner Family; Visit Provider Advanced Practice Midwife
DX: F12.90 Cannabis use, unspecified, uncomplicated (principal); R79.89 Other specified abnormal findings of blood chemistry; Z34.93 Encounter for supervision of normal pregnancy, unspecified, third trimester
CPT/HCPCS: 76816

== ENCOUNTER 2023-05-05 08:40 | Outpatient (CLI) | payer MEDICAID, SELFPAY ==
[2023-05-05 11:16] VITALS: BP 126/71; PULSE 55; TEMP 36.7
[2023-05-05 11:49] VITALS: BP 126/71; PULSE 55
--- NOTE | 2023-05-05 23:07 | W.OBNST ---
Date of service: 05/05/23 Time of Service: 14:00 NST Evaluation Reason for NST Reasons for Nonstress Test: OTHER, SEE COMMENT Reason for NST Other: Iron infusion Gestational Age Gestational Age in Weeks and Days: 37 Weeks and 3Days Test and Monitor Explained Test/Monitor Explained: Test Explained and Monitor Explained Vital Signs Blood Pressure: 126/71 Pulse: 55 Temperature: 98.1 F NST Information Date on Monitor: 05/05/23 Time on Monitor: 11:15 Date off Monitor: 05/05/23 Time off Monitor: 12:06 Total Time on Monitor: 51 NST Interventions: None NST Evaluation Patient States Movement: Present FHR Baseline: 135 Variability: Moderate 6-25 bpm Accelerations: 15x15 Decelerations: None NST Results: Reactive Note Ultrasound Done: N/A. NST Note Note: Sabrina is here for NST and iron infusion. The infusion infiltrated on the right arm and was restarted in the left arm. Sabrina expressed a lot of pain with the infiltration which improved after the infusion was stopped. She requested a cervical exam. cervix was closed and lower uterine segment bulging. vertex at -2 station. Signs of labor reviewed. met with Bobbi Brown today and instructed to return in 1 week for NST and iron nfusion. NST Reviewed and Verified by: Delores Lopez
[2023-05-05 23:10] VITALS: BP 126/71; PULSE 55; TEMP 36.7
== END 2023-05-05 13:20 | disposition home or self-care (01) ==
LOC: BCD 08:41 → OBS 11:10
PROVIDERS: PCP Nurse Practitioner Family; Visit Provider Advanced Practice Midwife
DX: O99.013 Anemia complicating pregnancy, third trimester (principal); Z3A.37 37 weeks gestation of pregnancy
CPT/HCPCS: 96365; 59025

== ENCOUNTER 2023-05-09 16:08 | Outpatient (CLI) | payer MEDICAID, SELFPAY ==
[2023-05-09 16:13] VITALS: BP 106/52; PULSE 58
[2023-05-09 16:50] VITALS: BP 106/52; PULSE 58; TEMP 36.6
--- NOTE | 2023-05-09 17:04 | W.OBNST ---
Date of service: 05/09/23 Time of Service: 17:04 NST Evaluation Reason for NST Reasons for Nonstress Test: FALSE LABOR Gestational Age Gestational Age in Weeks and Days: 38 Weeks and 0Days Test and Monitor Explained Test/Monitor Explained: Test Explained, Monitor Explained and Patient Verbalized Understanding Vital Signs Blood Pressure: 106/52 Pulse: 58 Temperature: 97.9 F Urine Results Urine Protein: Negative Urine Ketones: Negative Urine Glucose: Negative Urine Blood: Negative NST Information Date on Monitor: 05/09/23 Time on Monitor: 16:12 Date off Monitor: 05/09/23 Time off Monitor: 16:35 Total Time on Monitor: 23 NST Interventions: Notify Provider Contraction Frequency: 0 NST Evaluation Patient States Movement: Present FHR Baseline: 135 Variability: Moderate 6-25 bpm Accelerations: 15x15 Decelerations: None NST Results: Reactive Note Ultrasound Done: N/A. NST Note Note: SSE performed, neg pooling, neg nitrizine, neg ferns cvx closed Discharged to home, f/up as previously scheduled NST Reviewed and Verified by: Amna Lee
[2023-05-09 17:05] VITALS: BP 106/52; PULSE 58; TEMP 36.6
== END 2023-05-09 16:52 ==
LOC: BCD 16:09 → OBS 16:10
PROVIDERS: PCP Nurse Practitioner Family; Visit Provider Advanced Practice Midwife
DX: O47.1 False labor at or after 37 completed weeks of gestation (principal); Z3A.38 38 weeks gestation of pregnancy
CPT/HCPCS: 59025

== ENCOUNTER 2023-05-11 05:31 | Outpatient (CLI) | payer MEDICAID, SELFPAY ==
[2023-05-11 11:11] VITALS: BP 116/69; PULSE 56; TEMP 36.8
[2023-05-11 11:46] LABS: ROM Plus Negative
[2023-05-11 11:54] VITALS: BP 116/69; PULSE 56; TEMP 36.8
--- NOTE | 2023-05-11 12:00 | W.OBNST ---
Date of service: 05/11/23 Time of Service: 12:00 NST Evaluation Reason for NST Reasons for Nonstress Test: OTHER, SEE COMMENT Reason for NST Other: possible ROM Gestational Age Gestational Age in Weeks and Days: 38 Weeks and 2Days Test and Monitor Explained Test/Monitor Explained: Test Explained, Monitor Explained and Patient Verbalized Understanding Vital Signs Blood Pressure: 116/69 Pulse: 56 Temperature: 98.3 F NST Information Date on Monitor: 05/11/23 Time on Monitor: 11:32 Date off Monitor: 05/11/23 Time off Monitor: 11:53 Total Time on Monitor: 21 NST Interventions: PO Hydration NST Evaluation Patient States Movement: Present Variability: Moderate 6-25 bpm Accelerations: 15x15 Decelerations: None NST Results: Reactive Note Ultrasound Done: N/A (see separate note by Dr. Blanchard). NST Note Note: NST is reactive and reassuring. ROM + negative. ETHAN obtained by Dr. Blanchard, see separate note. NST Reviewed and Verified by: Delores Canales
[2023-05-11 12:02] VITALS: BP 116/69; PULSE 56; TEMP 36.8
--- NOTE | 2023-05-11 12:41 | W.OBNST ---
Date of service: 05/11/23 Time of Service: 12:20 NST Evaluation Reason for NST Reasons for Nonstress Test: OTHER, SEE COMMENT Reason for NST Other: possible ROM Gestational Age Gestational Age in Weeks and Days: 38 Weeks and 2Days Test and Monitor Explained Test/Monitor Explained: Test Explained, Monitor Explained and Patient Verbalized Understanding Vital Signs Blood Pressure: 116/69 Pulse: 56 Temperature: 98.3 F NST Information Time on Monitor: 11:32 Date off Monitor: 05/11/23 Time off Monitor: 11:53 NST Interventions: PO Hydration NST Evaluation Patient States Movement: Present Variability: Moderate 6-25 bpm Accelerations: 15x15 Decelerations: None NST Results: Reactive Note Ultrasound Done: ETHAN Indication: R/O rupture of membranes Total ETHAN: 7.9 Coding for ETHAN w/NST: Completed Exam. NST Note NST Reviewed and Verified by: Grace Blanchard
[2023-05-11 12:44] VITALS: BP 116/69; PULSE 56; TEMP 36.8
== END 2023-05-11 12:31 | disposition home or self-care (01) ==
LOC: BCD 06:09 → OBS 11:03
PROVIDERS: PCP Nurse Practitioner Family; Visit Provider Advanced Practice Midwife
DX: O99.013 Anemia complicating pregnancy, third trimester (principal); Z3A.38 38 weeks gestation of pregnancy
CPT/HCPCS: 84112; 59025

== ENCOUNTER 2023-05-12 04:48 | Outpatient (CLI) | payer MEDICAID, SELFPAY ==
[2023-05-12 11:03] LABS: Abs Immature Grans 0.08 10^3/uL (0.0-0.06); Absolute Basophil Count 0.02 10^3/uL (0.0-0.2); Absolute Eosinophil Count 0.02 10^3/uL (0.0-0.7); Absolute Lymphocyte Count 1.63 10^3/uL (1.2-3.4); Absolute Monocyte Count 0.51 10^3/uL (0.1-0.8); Absolute Neutrophil Count 5.95 10^3/uL (1.2-6.7); Basophils % 0.2; Eosinophils % 0.2; HCT 28.3 % (36.0-46.0); HGB 9.8 g/dL (11.2-15.7); Lymphocytes % 19.9; MCH 37.7 pg (27.0-33.0); MCHC 34.6 % (32.0-36.0); MCV 109 fL (80-95); MPV 10.2 fL (8.0-11.0); Monocytes % 6.2; Neutrophils % 72.5; Platelet Count 121 10^3/uL (130-400); RDW 12.9 % (11.7-14.6); RDW-SD 50.8 fL; WBC 8.21 10^3/uL (4.4-10.8)
[2023-05-12 11:23] LABS: TSH (W/Ref FT4) 13.72 uIU/mL (0.36-3.74)
[2023-05-12 11:40] LABS: FREE T4 0.92 ng/dL (0.76-1.46)
== END 2023-05-12 04:49 | disposition home or self-care (01) ==
LOC: LBO 04:49
PROVIDERS: PCP Nurse Practitioner Family; Visit Provider Advanced Practice Midwife
DX: O99.283 Endocrine, nutritional and metabolic diseases complicating pregnancy, third trimester; Z3A.38 38 weeks gestation of pregnancy
CPT/HCPCS: 36415; 84439; 84443; 85025

== ENCOUNTER 2023-05-12 11:17 | Outpatient (CLI) | payer MEDICAID, SELFPAY ==
[2023-05-12 11:23] VITALS: BP 100/60; PULSE 62; TEMP 36.6
[2023-05-12 11:31] VITALS: BP 100/60; PULSE 62
[2023-05-12] MEDS: IRON SUCROSE COMPLEX 200 MG in Normal Saline 100 ML 400 MG IVPB (12:14)
[2023-05-12 12:47] VITALS: BP 100/60; PULSE 62; TEMP 36.6
--- NOTE | 2023-05-12 12:47 | W.OBNST ---
Date of service: 05/12/23 Time of Service: 12:47 NST Evaluation Reason for NST Reasons for Nonstress Test: OTHER, SEE COMMENT Reason for NST Other: Anemia, Hypothyroidism Gestational Age Gestational Age in Weeks and Days: 38 Weeks and 3Days Test and Monitor Explained Test/Monitor Explained: Test Explained and Monitor Explained Vital Signs Blood Pressure: 100/60 Pulse: 62 Temperature: 97.9 F Urine Results Urine Protein: Negative Urine Ketones: Negative Urine Glucose: Negative Urine Blood: Negative NST Information Date on Monitor: 05/12/23 Time on Monitor: 11:27 Date off Monitor: 05/12/23 Time off Monitor: 12:10 Total Time on Monitor: 43 NST Interventions: PO Hydration NST Evaluation Patient States Movement: Present FHR Baseline: 135 Variability: Moderate 6-25 bpm Accelerations: 15x15 Decelerations: None NST Results: Reactive Note Ultrasound Done: N/A. NST Note Note: NST is reactive and reassuirng. NST Reviewed and Verified by: Delores Canales
== END 2023-05-12 12:35 | disposition home or self-care (01) ==
LOC: BCD 11:18 → OBS 11:23
PROVIDERS: PCP Nurse Practitioner Family; Visit Provider Advanced Practice Midwife
DX: O99.013 Anemia complicating pregnancy, third trimester (principal); Z3A.38 38 weeks gestation of pregnancy
CPT/HCPCS: 96368; 59025; J1756

== ENCOUNTER → 2023-05-12 14:04 | Outpatient (CLI) | payer MEDICAID, SELFPAY ==
--- NOTE | 2023-05-12 13:45 | DI.US_ITS ---
Exam(s) US OB F/U FACIAL/LVOT/RVOT EXAM: US OB F/U FACIAL/LVOT/RVOT CLINICAL HISTORY: assess for goiter, hypothyroidism affecting , E03.9, R79.89. TECHNIQUE: Transabdominal obstetrical ultrasound was performed. COMPARISON: US POCUS EXAM from 05/11/2023 FINDINGS: There is a single viable intrauterine gestation with cardiac activity identified-138 bpm The fetus is presently in cephalic position with neck flexed. Therefore was not possible to visualiz e the thyroid gland, as apparently requested.. Amniotic fluid: There is a normal amount of amniotic fluid. Placental location: The placenta is posterior grade 2,with no evidence of placenta previa. IMPRESSION:: Viable 3rd trimester gestation, as described above. Not able to visualize a thyroid gland, as per request DATA REPOSITORY:
== END ==
PROVIDERS: PCP Nurse Practitioner Family; Visit Provider Advanced Practice Midwife
DX: O99.283 Endocrine, nutritional and metabolic diseases complicating pregnancy, third trimester; R79.89 Other specified abnormal findings of blood chemistry
CPT/HCPCS: 76815

== ENCOUNTER 2023-05-18 11:38 | Outpatient (CLI) | payer MEDICAID, SELFPAY ==
[2023-05-18] MEDS: Normal Saline Flush 10 ML SYR IVP (11:55)
[2023-05-18 12:03] VITALS: BP 108/65; PULSE 51; TEMP 37
[2023-05-18 12:06] VITALS: BP 108/65; PULSE 51
[2023-05-18] MEDS: IRON SUCROSE COMPLEX 200 MG in Normal Saline 100 ML 400 MG IVPB (13:31)
--- NOTE | 2023-05-18 13:38 | PDOC.NST_ITS ---
Date of service: 05/18/23 Time of Service: 13:38 NST Evaluation Reason for NST Reasons for Nonstress Test: OTHER, SEE COMMENT Reason for NST Other: Iron Infusion Gestational Age Gestational Age in Weeks and Days: 39 Weeks and 2Days Test and Monitor Explained Test/Monitor Explained: Test Explained and Monitor Explained Vital Signs Blood Pressure: 108/65 Pulse: 51 Temperature: 98.6 F NST Information Date on Monitor: 05/18/23 Time on Monitor: 11:41 Date off Monitor: 05/18/23 Time off Monitor: 12:07 Total Time on Monitor: 26 NST Interventions: PO Hydration NST Evaluation Patient States Movement: Present FHR Baseline: 130 Variability: Moderate 6-25 bpm Accelerations: 15x15 Decelerations: None NST Results: Reactive Note Ultrasound Done: N/A. NST Note Note: 39 wks, iron infusion done Pt now living in hotel in [place] Next appt 05/24, will discuss IOL for postdates then NST Reviewed and Verified by: Amna Lee
[2023-05-18 13:39] VITALS: BP 108/65; PULSE 51; TEMP 37
== END 2023-05-18 14:00 | disposition home or self-care (01) ==
LOC: BCD 11:43 → OBS 11:45
PROVIDERS: PCP Nurse Practitioner Family; Visit Provider Advanced Practice Midwife
DX: O99.891 Other specified diseases and conditions complicating pregnancy (principal); D50.9 Iron deficiency anemia, unspecified; Z3A.39 39 weeks gestation of pregnancy
CPT/HCPCS: 96365; 59025; J1756

== ENCOUNTER 2023-05-24 03:41 | Outpatient (CLI) | payer MEDICAID, SELFPAY ==
[2023-05-24 09:49] LABS: HGB 10.1 g/dL (11.2-15.7); MCH 37.3 pg (27.0-33.0); MCHC 33.7 % (32.0-36.0); MPV 10.3 fL (8.0-11.0); Platelet Count 101 10^3/uL (130-400); RBC 2.71 10^6/uL (3.93-5.22); RDW 13.1 % (11.7-14.6); RDW-SD 52.6 fL; WBC 7.02 10^3/uL (4.4-10.8)
[2023-05-24 09:50] LABS: MCV 111 fL (80-95)
[2023-05-24 10:31] LABS: TSH (W/Ref FT4) 1.58 uIU/mL (0.36-3.74)
== END 2023-05-24 03:42 | disposition home or self-care (01) ==
LOC: LBO 03:41
PROVIDERS: Advanced Practice Midwife; PCP Nurse Practitioner Family; Visit Provider Advanced Practice Midwife
DX: O99.283 Endocrine, nutritional and metabolic diseases complicating pregnancy, third trimester (principal); Z3A.40 40 weeks gestation of pregnancy
CPT/HCPCS: 36415; 85027; 84443

== ENCOUNTER 2023-05-30 07:33 | Inpatient (IN) | payer MEDICAID, SELFPAY ==
[2023-05-30 12:26] VITALS: BP 127/59; PULSE 59; RESP 18; TEMP 36.4; O2SAT 100
[2023-05-30 12:30] VITALS: BP 127/59; PULSE 59
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
[2023-05-30 14:01] LABS: HCT 28.5 % (36.0-46.0); HGB 9.7 g/dL (11.2-15.7); MCH 37.5 pg (27.0-33.0); MPV 10.7 fL (8.0-11.0); Platelet Count 101 10^3/uL (130-400); RBC 2.59 10^6/uL (3.93-5.22); RDW 13.2 % (11.7-14.6); RDW-SD 53.5 fL; WBC 8.27 10^3/uL (4.4-10.8)
[2023-05-30 14:02] LABS: MCV 110 fL (80-95)
[2023-05-30] MEDS: miSOPROStol 25 MCG TAB 50 MCG PO (14:05)
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
[2023-05-30 14:47] VITALS: BMI 28.5
[2023-05-30 16:05] VITALS: BP 142/80; PULSE 60
[2023-05-30] MEDS: Ondansetron O.D.T. 4 MG TABEF PO (17:48)
[2023-05-30 19:38] VITALS: BP 103/56; PULSE 60; TEMP 36.8
[2023-05-30] MEDS: valACYclovir 1,000 MG TAB 1000 MG PO (20:13)
--- NOTE | 2023-05-30 20:48 | PGE_ITS ---
Date of service: 05/30/23 Time of Service: 20:48 Informed Consent Informed Consent: Induction of Labor (pt consents to misoprostel for cervical ripening and then pitocin infusion when recommended) and Risk,Benefits,Alternatives Discussed Pelvic Exam Dilation: 0 Effacement (%): 100 station: -3 Cervix Position: anterior Contractions Monitor Mode: External Contraction Frequency(min): irregular Contraction Duration(sec): 60 Intensity: Mild/Moderate Fetus A Monitor: External (US) Heart Rate Baseline: 135 Variability: Moderate (6-25 BPM) Categories: Category I Accelerations: 15 X 15 Decelerations: None and Variable (one isolated variable with contraction, resolved with position change from semi-fowlers to left lateral) Amniotic Membrane Status: Intact Assessment and Plan Assessment and plan (1) Encounter for induction of labor: Status: Acute Assessment and plan: A: IOL for post dates, salinas score @ 5 Latent phase, s/p one dose of miso P: Second dose of miso held for increased pt discomfort Cat 1 tracing though one 70 second variable noted @ 2037, non-recurrent Will continue EFM for 2 hrs, continue to hold further cervical ripening Encourage pt to sleep/rest Expect to begin pitocin induction if no active labor by 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 [employer]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 has consented pt for epidural Objective Abnormal lab results 05/30/23 Range/Units 13:33 RBC 2.59 L (3.93-5.22) 10^6/uL Hgb 9.7 L (11.2-15.7) g/dL Hct 28.5 L (36.0-46.0) % MCV 110 H (80-95) fL MCH 37.5 H (27.0-33.0) pg Plt Count 101 L (130-400) 10^3/uL Temp Pulse Resp BP Pulse Ox 98.2 F 60 18 103/56 L 100 05/30/23 19:38 05/30/23 19:38 05/30/23 12:26 05/30/23 19:38 05/30/23 12:26 Laboratory Results WBC 8.27 10^3/uL (4.4-10.8) 05/30/23 13:33 RBC 2.59 10^6/uL (3.93-5.22) L 05/30/23 13:33 Hgb 9.7 g/dL (11.2-15.7) L 05/30/23 13:33 Hct 28.5 % (36.0-46.0) L 05/30/23 13:33 MCV 110 fL (80-95) H 05/30/23 13:33 MCH 37.5 pg (27.0-33.0) H 05/30/23 13:33 MCHC 34.0 % (32.0-36.0) 05/30/23 13:33 RDW 13.2 % (11.7-14.6) 05/30/23 13:33 Plt Count 101 10^3/uL (130-400) L 05/30/23 13:33 MPV 10.7 fL (8.0-11.0) 05/30/23 13:33 Patient ABO/Rh O Positive 05/30/23 13:33 Antibody Screen NEGATIVE 05/30/23 13:33 Vital Signs Reviewed: Yes Objective Narrative Objective Narrative: Pt's support team (KAMRYN and Neeru) are at bedside Pt has generally tolerated PO intake, ambulated & showered One dose of 50 mcg misoprostel given @ 1400 Evaluation at 1800 for irreg contrx, cat 1 tracing Cvx closed/100% and anterior, vtx -2/-3; salinas score advanced to 5 Overall category 1 tracing, afebrile and normotensive Pt currently declines nitrous or epidural, is satisfied with resting in LLP Second dose miso held due to increased pt discomfort Subjective Interval history since last seen: Pt reports lower abd cramping that is painful and low back pain too, no change vaginal mucous or bleeding or ROM. Had nausea earlier and vomited her dinner, took a Zofran and was able to tolerate PO intake again. Results Hemoglobin/Hematocrit: Hgb 9.7 g/dL (11.2-15.7) L 05/30/23 13: Hct 28.5 % (36.0-46.0) L 05/30/23 13:33 Abnormal Lab Findings: Abnormal Labs 05/30/23 13:33 RBC 2.59 L Hgb 9.7 L Hct 28.5 L MCV 110 H MCH 37.5 H Plt Count 101 L
[2023-05-30 22:35] VITALS: BP 105/55; PULSE 60; TEMP 36.7
[2023-05-31] VITALS (100 sets, daily range): BP systolic 95–139; BP diastolic 53–91; PULSE 0–107; RESP 16; TEMP 36.3–36.9; O2SAT 98
[2023-05-31] MEDS: Ondansetron O.D.T. 4 MG TABEF PO ×3 (00:28→20:24)
[2023-05-31] MEDS: Levothyroxine 175 MCG TAB PO (05:38)
[2023-05-31] MEDS: Oxytocin/Normal Saline 30 UNIT/500 ML BAG 2 UNITS IV (06:27)
[2023-05-31] MEDS: Normal Saline Flush 10 ML SYR IVP (06:27)
[2023-05-31] MEDS: Lactated Ringers 1,000 ML 125 ML IV (06:28)
--- NOTE | 2023-05-31 07:10 | W.PM.OBNL1 ---
Date of service: 05/31/23 Time of Service: 07:11 Informed Consent Informed Consent: Induction of Labor (pt consents to misoprostel for cervical ripening and then pitocin infusion when recommended) and Risk,Benefits,Alternatives Discussed Pelvic Exam Comments: pelvic deferred Contractions Monitor Mode: External Contraction Frequency(min): spaced out Intensity: Mild Fetus A Monitor: External (US) Heart Rate Baseline: 135 Variability: Moderate (6-25 BPM) Categories: Category I Accelerations: 15 X 15 Decelerations: None Amniotic Membrane Status: Intact Assessment and Plan Assessment and plan (1) Encounter for induction of labor: Status: Acute Assessment and plan: A: IOL for post dates, G1 @ 41+1 wks, HD#2 Anemia, thrombocytopenia, hypothyroidism Category 1 tracing this morning, s/p 1 dose of miso yesterday P: Begin pitocin induction with salinas score 5 (@2030 last night) Clear liquids, continuous EFM, comfort measures as pt requests Dr. Velasquez consulting today Anticipate Objective Abnormal lab results 05/30/23 Range/Units 13:33 RBC 2.59 L (3.93-5.22) 10^6/uL Hgb 9.7 L (11.2-15.7) g/dL Hct 28.5 L (36.0-46.0) % MCV 110 H (80-95) fL MCH 37.5 H (27.0-33.0) pg Plt Count 101 L (130-400) 10^3/uL Temp Pulse Resp BP Pulse Ox 97.7 F 53 L 18 104/71 100 05/31/23 05:38 05/31/23 05:38 05/30/23 12:26 05/31/23 05:38 05/30/23 12:26 Laboratory Results WBC 8.27 10^3/uL (4.4-10.8) 05/30/23 13:33 RBC 2.59 10^6/uL (3.93-5.22) L 05/30/23 13:33 Hgb 9.7 g/dL (11.2-15.7) L 05/30/23 13:33 Hct 28.5 % (36.0-46.0) L 05/30/23 13:33 MCV 110 fL (80-95) H 05/30/23 13:33 MCH 37.5 pg (27.0-33.0) H 05/30/23 13:33 MCHC 34.0 % (32.0-36.0) 05/30/23 13:33 RDW 13.2 % (11.7-14.6) 05/30/23 13:33 Plt Count 101 10^3/uL (130-400) L 05/30/23 13:33 MPV 10.7 fL (8.0-11.0) 05/30/23 13:33 Patient ABO/Rh O Positive 05/30/23 13:33 Antibody Screen NEGATIVE 05/30/23 13:33 Vital Signs Reviewed: Yes Objective Narrative Objective Narrative: Further misoprostel held due to increased pt discomfort and occasional variable decel Pt slept for several hours through the night Vital signs are stable Variable decels recurred x3-4 last evening, but none since 2229 EFM was continued for additional 2 hours without any decels then discontinued Category 1 tracing this morning, uterine irritability noted per toco Pt consents to pitocin induction this morning, plans for early epidural Subjective Interval history since last seen: COntractions diminished through the night, pt was able to sleep. Consents to pitocin induction this morning. Results Hemoglobin/Hematocrit: Hgb 9.7 g/dL (11.2-15.7) L 05/30/23 13:33 Hct 28.5 % (36.0-46.0) L 05/30/23 13:33 Abnormal Lab Findings: Abnormal Labs 05/30/23 13:33 RBC 2.59 L Hgb 9.7 L Hct 28.5 L MCV 110 H MCH 37.5 H Plt Count 101 L
[2023-05-31] MEDS: lamoTRIgine 100 MG TAB PO (08:05)
--- NOTE | 2023-05-31 08:15 | PGE_ITS ---
Date of service: 05/31/23 Time of Service: 08:16 Informed Consent Informed Consent: Induction of Labor (pt consents to misoprostel for cervical ripening and then pitocin infusion when recommended) and Risk,Benefits,Alternatives Discussed Pelvic Exam Comments: deferred until after epidural Contractions Monitor Mode: External Contraction Frequency(min): 4-6 Contraction Duration(sec): 60 Intensity: Moderate Fetus A Monitor: Novii Heart Rate Baseline: 125 Variability: Moderate (6-25 BPM) Categories: Category I Assessment and Plan Assessment and plan (1) Encounter for induction of labor: Status: Acute Assessment and plan: 1. Pitocin is at 6 and patient is requesting epidural, ground wood supervisor notified. 2. Plan to do VE after epidural and hold pitocin at current rate until patient is comfortable status post epidural 3. Plan NVD. KH Objective Abnormal lab results 05/30/23 Range/Units 13:33 RBC 2.59 L (3.93-5.22) 10^6/uL Hgb 9.7 L (11.2-15.7) g/dL Hct 28.5 L (36.0-46.0) % MCV 110 H (80-95) fL MCH 37.5 H (27.0-33.0) pg Plt Count 101 L (130-400) 10^3/uL Temp Pulse Resp BP Pulse Ox 97.7 F 52 L 18 138/76 100 05/31/23 05:38 05/31/23 08:12 05/30/23 12:26 05/31/23 07:34 05/30/23 12:26 Laboratory Results WBC 8.27 10^3/uL (4.4-10.8) 05/30/23 13:33 RBC 2.59 10^6/uL (3.93-5.22) L 05/30/23 13:33 Hgb 9.7 g/dL (11.2-15.7) L 05/30/23 13:33 Hct 28.5 % (36.0-46.0) L 05/30/23 13:33 MCV 110 fL (80-95) H 05/30/23 13:33 MCH 37.5 pg (27.0-33.0) H 05/30/23 13:33 MCHC 34.0 % (32.0-36.0) 05/30/23 13:33 RDW 13.2 % (11.7-14.6) 05/30/23 13:33 Plt Count 101 10^3/uL (130-400) L 05/30/23 13:33 MPV 10.7 fL (8.0-11.0) 05/30/23 13:33 Patient ABO/Rh O Positive 05/30/23 13:33 Antibody Screen NEGATIVE 05/30/23 13:33 Subjective Interval history since last seen: Sabrina is requesting epidural. Has been using Nitrous without good relief. Denies bloody show or urge to push. They have already had a consult with anesthesia and denies questions. Pitocin is at 6 mu and will hold until after epidural is in place. KH Results Hemoglobin/Hematocrit: Hgb 9.7 g/dL (11.2-15.7) L 05/30/23 13:33 Hct 28.5 % (36.0-46.0) L 05/30/23 13:33 Abnormal Lab Findings: Abnormal Labs 05/30/23 13:33 RBC 2.59 L Hgb 9.7 L Hct 28.5 L MCV 110 H MCH 37.5 H Plt Count 101 L
--- NOTE | 2023-05-31 09:39 | ANES.NEURP_ITS ---
Epidural/Spinal Daily Note Date Performed: 05/31/23
--- NOTE | 2023-05-31 09:39 | W.ANESEPD ---
Epidural/Spinal Daily Note Date Performed: 05/31/23
--- NOTE | 2023-05-31 09:40 | W.ANESNEU ---
Epidural/Spinal Catheter Date Performed: 05/31/23 Procedure Start: 09:09 Procedure Stop: 09:15 Requesting Provider: Delores Canales Procedure Location: Obstetrics Reason Performed: Labor Epidural Standard Monitors Applied: Blood Pressure and SpO2 Patient Position: Sitting Sedation Given (Indicate Dose Given): No Sedation given Patient Mental Status: Awake Sterility: Hand Hygiene, Surgical Cap, Surgical Mask, Sterile Gloves and Chlorhexidine Procedure Location: L3-L4 Interspace Epidural Needle: Tuohy 17 Guage Needle Length: 3.5 Inch Needle Approach: Midline Epidural Procedure: Skin Prepped, Sterile Drape Placed, 1% Lidocaine to skin and subcutaneous tissue with 25G needle and LILO to Saline Used Catheter Placed?: Catheter Placed (wire reinforced. ) Test Dose (Indicate Dose Given): 3ml 1.5% Lidocaine with 1:200K Epinephrine Given Loss of Resistance Depth (cm): 6 Catheter depth at skin (cm): 12 Dressing: Sorbaview Dressing Placed, Mastisol Used and Dressing reinforced with Tape Epidural Provider Bolus (Indicate Dose Given): Total bolus dose given in 3-5 ml divided doses and Total Ropivacaine 0.1% with Fentanyl 2mcg/ml Given from pump. (ml) (5 mL + 7 mL) Dose:: 12 mL Additives (Indicate Dose Given ): None Infusion Medication: Medication Infusion Began Medication Infusion: Ropivacaine 0.1% with Fentanyl 2mcg/ml Maintenance Infusion Rate (ml/hour): 10 PCEA Bolus Dose (ml): 5 Block Level: N/A Paresthesia: None Ultrasound: Used to judith site Number of Attempts (See previous attempts in note section): 1 Procedure Tolerated: No Complications Procedure Outcome: Successful Performed By: Vasiliy Mcguire
--- NOTE | 2023-05-31 10:06 | W.PM.OBNL1 ---
Date of service: 05/31/23 Time of Service: 10:06 Informed Consent Informed Consent: Induction of Labor (pt consents to misoprostel for cervical ripening and then pitocin infusion when recommended) and Risk,Benefits,Alternatives Discussed Pelvic Exam Dilation: 2.5 Effacement (%): 100 station: -1 Position: GUERLINE Cervix Position: mid Consistency: medium BISHOPS Score(Cervical Ripeness Score): 8 Contractions Monitor Mode: External Contraction Frequency(min): 2-3 Contraction Duration(sec): 60 Intensity: Moderate Fetus A Monitor: Novii Heart Rate Baseline: 130 Variability: Moderate (6-25 BPM) Categories: Category I Accelerations: 10 X 10 Decelerations: None Amniotic Membrane Status: Ruptured Assessment and Plan Assessment and plan (1) Encounter for induction of labor: Status: Acute Assessment and plan: 1. Epidural is in place and effective 2. SROM occurred for clear fluid 3. VE done and CNM was able to aid cervix in dilating from fingertip to 2.5 cm, salinas score 8 4. Continue present management and expect NVD. KH Objective Abnormal lab results 05/30/23 Range/Units 13:33 RBC 2.59 L (3.93-5.22) 10^6/uL Hgb 9.7 L (11.2-15.7) g/dL Hct 28.5 L (36.0-46.0) % MCV 110 H (80-95) fL MCH 37.5 H (27.0-33.0) pg Plt Count 101 L (130-400) 10^3/uL Temp Pulse Resp BP Pulse Ox 98.1 F 53 L 16 124/59 L 100 05/31/23 07:34 05/31/23 10:04 05/31/23 07:34 05/31/23 09:57 05/30/23 12:26 Laboratory Results WBC 8.27 10^3/uL (4.4-10.8) 05/30/23 13:33 RBC 2.59 10^6/uL (3.93-5.22) L 05/30/23 13:33 Hgb 9.7 g/dL (11.2-15.7) L 05/30/23 13:33 Hct 28.5 % (36.0-46.0) L 05/30/23 13:33 MCV 110 fL (80-95) H 05/30/23 13:33 MCH 37.5 pg (27.0-33.0) H 05/30/23 13:33 MCHC 34.0 % (32.0-36.0) 05/30/23 13:33 RDW 13.2 % (11.7-14.6) 05/30/23 13:33 Plt Count 101 10^3/uL (130-400) L 05/30/23 13:33 MPV 10.7 fL (8.0-11.0) 05/30/23 13:33 Patient ABO/Rh O Positive 05/30/23 13:33 Antibody Screen NEGATIVE 05/30/23 13:33 Vital Signs Reviewed: Yes Subjective Interval history since last seen: Sabrina is much more comfortable with epidural in place. She also experienced SROM of clear fluid around 0900. KH Results Hemoglobin/Hematocrit: Hgb 9.7 g/dL (11.2-15.7) L 05/30/23 13:33 Hct 28.5 % (36.0-46.0) L 05/30/23 13:33 Abnormal Lab Findings: Abnormal Labs 05/30/23 13:33 RBC 2.59 L Hgb 9.7 L Hct 28.5 L MCV 110 H MCH 37.5 H Plt Count 101 L
--- NOTE | 2023-05-31 10:42 | PGE_ITS ---
Date of service: 05/31/23 Time of Service: 10:42 Informed Consent Informed Consent: Induction of Labor (pt consents to misoprostel for cervical ripening and then pitocin infusion when recommended) and Risk,Benefits,Alternatives Discussed Pelvic Exam Dilation: 6 Effacement (%): 100 station: +1 Cervix Position: mid Consistency: soft Contractions Monitor Mode: External Contraction Frequency(min): 2-3 Contraction Duration(sec): 60 Intensity: Moderate/Strong Fetus A Monitor: Novii Heart Rate Baseline: 130 Variability: Moderate (6-25 BPM) Assessment Note: Sabrina's baby had 2 variable decelerations to 80's, one after repositioning to left side and one not associated with any changes. Baby's heart rate responded to VE by provider and hands and knees positioning. VE now 6 cm and 100 %. Pitocin was turned off during this time and IV fluid bolus given. After FHR was stable through a couple of contractions Sabrina was helped to lay on her side with peanut ball between her legs. Pitocin was then restarted at 4mu and we will continue to monitor closely. I reviewed that there is risk for C/S and that she should remain NPO at this time, Sabrina verbalizes understanding. Assessment and Plan Assessment and plan (1) Encounter for induction of labor: Status: Acute Assessment and plan: 1. Period of time that tracing was CAT II due to FHR variable decelerations to 80's, currently recovered following intrauterine resuscitation measures. 2. Will restart pitocin that had been discontinued during FHR changes and decrease rate to 4mu. 3. NPO status reviewed with patient 4. Will review this with Dr. Velasquez who is OB provider electronic organ technician. SELMA Objective Abnormal lab results 05/30/23 Range/Units 13:33 RBC 2.59 L (3.93-5.22) 10^6/uL Hgb 9.7 L (11.2-15.7) g/dL Hct 28.5 L (36.0-46.0) % MCV 110 H (80-95) fL MCH 37.5 H (27.0-33.0) pg Plt Count 101 L (130-400) 10^3/uL Temp Pulse Resp BP Pulse Ox 98.1 F 55 L 16 118/73 100 05/31/23 07:34 05/31/23 10:40 05/31/23 07:34 05/31/23 10:40 05/30/23 12:26 Laboratory Results WBC 8.27 10^3/uL (4.4-10.8) 05/30/23 13:33 RBC 2.59 10^6/uL (3.93-5.22) L 05/30/23 13:33 Hgb 9.7 g/dL (11.2-15.7) L 05/30/23 13:33 Hct 28.5 % (36.0-46.0) L 05/30/23 13:33 MCV 110 fL (80-95) H 05/30/23 13:33 MCH 37.5 pg (27.0-33.0) H 05/30/23 13:33 MCHC 34.0 % (32.0-36.0) 05/30/23 13:33 RDW 13.2 % (11.7-14.6) 05/30/23 13:33 Plt Count 101 10^3/uL (130-400) L 05/30/23 13:33 MPV 10.7 fL (8.0-11.0) 05/30/23 13:33 Patient ABO/Rh O Positive 05/30/23 13:33 Antibody Screen NEGATIVE 05/30/23 13:33 Subjective Interval history since last seen: Sabrina remains very comfortable since epidural. Was able to move quickly from one position to another for intrauterine resuscitation measures due to 3 minute deceleration to 80's. Current FHR 130's and moderate variability. KH Results Hemoglobin/Hematocrit: Hgb 9.7 g/dL (11.2-15.7) L 05/30/23 13:33 Hct 28.5 % (36.0-46.0) L 05/30/23 13:33 Abnormal Lab Findings: Abnormal Labs 05/30/23 13:33 RBC 2.59 L Hgb 9.7 L Hct 28.5 L MCV 110 H MCH 37.5 H Plt Count 101 L
[2023-05-31] MEDS: Lactated Ringers 1,000 ML 200 ML IV (11:00)
[2023-05-31] MEDS: Oxytocin/Normal Saline 30 UNIT/500 ML BAG 334 UNITS IV (14:55)
--- NOTE | 2023-05-31 15:00 | PLAC_PTH ---
PATIENT: Marino Mcgill LOC: OBS U#:[id number] AGE/SX: 33/F ROOM: OBS.304 RE05/30/[address]: Amna Lee CNM : 1990 BED: A DIS: 06/02/2023 SPEC #: [id number] RECD: 06/01/23 12:45 STATUS: EDWIGE REQ #: [id number] GERARDO: 05/31/23 15:[address]: Amna Lee DEPT: Surgical Specimen RECD BY: Erin Lawrence ENTERED: 06/01/23 12:46 SP TYPE: PLAC OTHR DR: JERICHO BENNETT Tissues: 1 - PLACENTA (3RD TRIMESTER) Procedures: IMMUNOPEROXIDASE STAIN GROSS AND MICRO LEVEL 5 Comments: [id number]
--- NOTE | 2023-05-31 15:21 | W.ANESPOSTOP ---
Postoperative Evaluation Date, Time and Location Date Performed: 05/31/23 Time Performed: 15:21 Patient Location: Obstetrics Vital Signs Most Recent Imported Vital Signs: Most Recent Vital Signs Temp Pulse Resp BP Pulse Ox 36.5 C 68 16 122/61 100 05/31/23 13:49 05/31/23 15:12 05/31/23 10:10 05/31/23 15:12 05/30/23 12:26 Pain Score Most Recent Pain Score: Most Recent Pain Score Pain Level 0 05/30/23 12:26 Assessment Mental Status: Awake (Alert & Oriented to Patient Baseline) Airway and Respiratory Function: Patent airway with normal (patient baseline) respiratory exam Cardiovascular Function: Hemodynamically Stable Hydration Status: Adequately Hydrated Nausea & Vomiting: No Nausea or Vomiting Pain: Pain is tolerable per patient Peripheral Nerve Block: Patient did not receive a nerve block Postoperative Comments:: pump turned off recently, epidural worked well, catheter too be removed by RN shortly.
--- NOTE | 2023-05-31 15:23 | W.OBDELIVERY ---
Date of service: 05/31/23 Time of Service: 09:01 OB Labor/ Delivery Information Providers Doctor: Asmita Velasquez Nurse Market Research Manager: Delores Canales Channeler Insole: Vasiliy Mcguire Nurse: Janelle Lizama Nurse: Ronnie Bella Labor/Delivery Information Number of Babies in Womb: 1 Steroids Given: None Reason Steroids Not Administered: N/A Group Beta Strep: Negative Antibiotics Administered: No Rubella Status: Immune Blood Type: O+ Varicella Immunity: Immune Shoulder Dystocia: No Stages of Labor Onset of Labor Date: 05/31/23 Onset of Labor Time: 10:30 Complete Dilatation Date: 05/31/23 Complete Dilatation Time: 10:40 Labor - Stage 1 Duration: 10 minutes ROM Baby A: 05/31/23 ROM Baby A: 09:18 ROM Total Time- Baby A: [id number] Delivery Date-Baby A: 05/31/23 Delivery Time-Baby A: 14:53 Labor Stage 2 Duration: 4 hours and 13 minutes Placenta Delivery Date-Baby A: 05/31/23 Placenta Delivery Time-Baby A: 15:00 Labor-Stage 3 Duration: 7 minutes Total Length of Labor-Baby A: 4 hours and 23 minutes Placenta Status: Delivered Baby A Infant Gender: Male Gestational Status: Term (39-41.6 wks) Gestational Age in Weeks/Days: 41 Weeks and 1 Days weight: 5 lb 6.95 oz Score-1 Minute Interval(Baby A) Heart Rate-1 minute: 100 BPM or Greater Respiratory Effort- 1 minute: Spontaneous/Strong Cry Muscle Tone-1 minute: Active Movement Reflex Response-1 minute: Minimal Response Color-1 minute: Bluish Hands or Feet Total Score-1 minute: 8 Score-5 Minute Interval(Baby A) Heart Rate- 5 minute: 100 BPM or Greater Respiratory Effort-5 minute: Spontaneous/Strong Cry Muscle Tone-5 minute: Active Movement Reflex Response-5 minute: Prompt Response Color-5 minute: Bluish Hands or Feet Total Score- 5 minute: 9 Interventions Assisted Delivery Baby A , Type of Assisted Delivery: Vacuum Indication for Vacuum Assisted Delivery: Maternal Exhaustion, I was asked by Kalpana Canales CNM to assess pt for vacuum assisted vaginal delivery. Pt has been completely dilated for ~ [address] with epidural in place and adequate labor analgesia. She has expressed exhaustion and does not feel that she can continue pushing effectively. FHR 140s baseline. SVE vertex at 3+ station with small amount of caput. After verbal permission obtained the pt was placed in dorsal lithotomy position with her thighs pressed against her body and legs supported. She was able to demonstrate satisfactory maternal expulsive effort that allowed the Kiwi vacuum cup to be applied to the vertex. The vacuum was not applied until the next contraction and in one motion over the course of three pushes there was traction applied to the presenting part. At the completion of the third push associated with that contraction the Kiwi Cup popped off. FHR tracing reassuring during and after the vacuum application. With the next contraction the Kiwi cup was applied and vacuum achieved and over the course of one contraction the vertex was brought to crowing on the perineum and the head successfully delivered in OA position followed by infant's shoulders and trunk. Kiwi Cup vacuum was deflated and the infant was placed on it's mother's chest. After the umbilical cord had stopped pulsing it was then doubly clamped and cut and cord bloods collected. I excused my self from the bedside and Kalpana Canales CNM delivered the placenta and did the perineal repair. :
--- NOTE | 2023-05-31 16:59 | OBVDS_ITS ---
Date of service: 05/31/23 Time of Service: 16:59 OB Labor/ Delivery Information Baby A Delivery Delivery Method: Spontaneaous Presentation: Cephalic Cephalic Position: Vertex Vertex Position: Left Occipital Anterior Cord Description-Baby A: 3 Vessels and Clamped/Cut Amniotic Fluid: Clear Estimated Blood Loss: 350 Delivery Outcome: Liveborn Infant Transferred: Remains with Mother Note: Sabrina presented in the afternoon of 05/30/23 for induction of labor at 41 weeks gestation. She had received a dose of misoprostol with some contractions then in the morning of 05/31/23 was started on Pitocin. She began to be uncomfortable and used nitrous as soon as pitocin was started with plan to have epidural. TELECOM ASSISTANT had visited with her 05/30/23 to review epidural procedure. We called for TELECOM ASSISTANT to attend patient to place epidural at 0900. FHR tracing was CAT I with baseline 125 and regular contractions every 2 minutes. Pitocin was at 6 mu. She tolerated epdidural well. FHR tracing was CAT II at 1020 due to variable decelerations associated with position changes. Intrauterine resuscitation with IV bolus, discontinuing pitocin and VE done, patient progressed from 0 to now 3cm. Once FHR tracing was reassuring pitocin was restarted at 4 mu. labor progressed and at 1136 she was 10/100/+2. Tracing fluctuated between CAT I and CAT II due to some variable decelerations to 80 but not recurrent. Sabrina was also experiencing frequent nausea and vomiting. She was wanting to push and second stage huddle was held at 1150 and she began pushing. FHR tracing continued to be overall reassuring with broken tracing when patient sat up to wretch and have emesis. At 1250 we had second stage huddle for hour 2 and FHR tracing was again overall reassuring but there were some variable decelerations. Patient was trying to push but was getting fatigued. At 1350 another second stage huddle was held, continued to have CAT II tracing with now increased baseline of 150-160. Attempt to straight cath was not successful due to head. Due to variable decelerat ions becoming more repetitive and baseline change, mortgage loan underwriter consulted with Dr. Velasquez at 1425 who was director of instructional technology. She preferred we try to rest Sabrina and ask anesthesia to attend to bolus her epidural however TELECOM ASSISTANT was unable to attend at that time. Industrial Electrical Engineer requested Dr. Velasquez assess tracing and VE to consider Vacuum due to maternal fatigue and CAT II tracing. agreed to assess and attended patient at 1444 and reviewed use of Vacuum to assist delivery with Sabrina and Sabrina requested she help with Vacuum. Pediatric provider was notified as well. See separate note by Dr. Velasquez for VAD. Sabrina was able to push with help of vacuum and delivered a live Male with vigorous cry at 1453 over 2nd degree right side vaginal laceration. Baby was brought skin to skin as Pediatric provider was not present yet and baby was doing well. Delayed cord clamping done by Dr. Velasquez and cord bloods obtained as well by her. Industrial Electrical Engineer assumed care at that time as Dr. Velasquez was needed in another room. score 8 at 1 minute and 9 at 5 minutes. Sabrina agreed to have baby examined by Pediatric provider when she presented and then baby was placed skin to skin again. Placenta delivered spontaneously via marcial mechanism at 1500, intact. Fundus firmed to U -1 with massage and IV fluids with pitocin per protocol which was initiated immediately after baby was born. EBL 350. Laceration was infiltrated with 1% lidocaine and repaired with 3.0 Vicryl in usual fashion. It was noted that there was bilateral labial abrasions that were hemostatic and left unrepaired. Bladder was emptied by straight cath for 300cc urine. Sponge and needle count as well as instrument count correct. Mother and baby Amol Bella are in satisfactory condition. Baby's weight 5lb 7oz. Sabrina plans to breast feed her son and would like circumcision prior to discharge if baby is able to have that done. Expect normal PP course and will encourage 48 hour stay due to baby's size and VAD. Providers Doctor: Asmita Velasquez Nurse Cullet Crusher: Delores Canales Cashier: Vasiliy Mcguire Nurse: Janelle Lizama Nurse: Ronnie Bella Labor/Delivery Information Number of Babies in Womb: 1 Steroids Given: None Reason Steroids Not Administered: N/A Group Beta Strep: Negative Antibiotics Administered: No Rubella Status: Immune Blood Type: O+ Varicella Immunity: Immune Shoulder Dystocia: No Stages of Labor Onset of Labor Date: 05/31/23 Onset of Labor Time: 10:30 Complete Dilatation Date: 05/31/23 Complete Dilatation Time: 10:40 Labor - Stage 1 Duration: 10 minutes ROM Baby A: 05/31/23 ROM Baby A: 09:18 ROM Total Time- Baby A: [id number] Infant Delivery Date-Baby A: 05/31/23 Infant Delivery Time-Baby A: 14:53 Labor Stage 2 Duration: 4 hours and 13 minutes Placenta Delivery Date-Baby A: 05/31/23 Placenta Delivery Time-Baby A: 15:00 Labor-Stage 3 Duration: 7 minutes Total Length of Labor-Baby A: 4 hours and 23 minutes Placenta Status: Delivered Baby A Infant Gender: Male Gestational Status: Term (39-41.6 wks) Gestational Age in Weeks/Days: 41 Weeks and 1 Days weight: 5 lb 6.95 oz Score-1 Minute Interval(Baby A) Heart Rate-1 minute: 100 BPM or Greater Respiratory Effort- 1 minute: Spontaneous/Strong Cry Muscle Tone-1 minute: Active Movement Reflex Response-1 minute: Minimal Response Color-1 minute: Bluish Hands or Feet Total Score-1 minute: 8 Score-5 Minute Interval(Baby A) Heart Rate- 5 minute: 100 BPM or Greater Respiratory Effort-5 minute: Spontaneous/Strong Cry Muscle Tone-5 minute: Active Movement Reflex Response-5 minute: Prompt Response Color-5 minute: Bluish Hands or Feet Total Score- 5 minute: 9
[2023-05-31] MEDS: Ibuprofen 600 MG TAB PO (17:21)
[2023-05-31] MEDS: Acetaminophen 325 MG TAB 650 MG PO (17:28)
[2023-05-31] MEDS: Dibucaine 1% 28 GM TUBE TP (17:29)
[2023-05-31] MEDS: Hamamelis Leaf/Glycerin 100 EACH BOX PR (17:29)
[2023-05-31] MEDS: valACYclovir 1,000 MG TAB 1000 MG PO (20:23)
[2023-05-31] MEDS: Docusate Sodium 100 MG CAP PO (20:24)
[2023-06-01] MEDS: Acetaminophen 325 MG TAB 650 MG PO ×4 (01:24→21:50)
[2023-06-01] MEDS: Ibuprofen 600 MG TAB PO ×3 (01:25→18:19)
[2023-06-01 01:50] VITALS: BP 115/74; PULSE 66; TEMP 36.6
[2023-06-01] MEDS: Levothyroxine 175 MCG TAB PO (05:19)
--- NOTE | 2023-06-01 08:18 | W.PM.OBPNV1 ---
Date of service: 06/01/23 Time of Service: 08:18 Assessment and Plan Assessment and plan (1) care following vaginal delivery: Status: Acute Assessment and plan: 1. Normal PP state 2. performing own ADL's but requires support with 3. Anticipate discharge 06/02/23 (2) Lactating mother: Status: Acute Assessment and plan: 1. Pumping and hand expressing colostrum as baby is not vigorous with suck at this time, working with nursing staff and LC 2. Continue to support Bennett's breast feeding practices. KH Exam Physical Exam Vital signs: Temp Pulse Resp BP Pulse Ox 98 F 66 16 115/74 98 06/01/23 01:50 06/01/23 01:50 05/31/23 21:52 06/01/23 01:50 05/31/23 23:13 Vital Signs Reviewed: Yes Constitutional Constitutional: no acute distress HEENT Exam HEENT Exam: Normal Neck Exam Neck Exam: Normal Respiratory Exam Respiratory Exam: Normal Cardiovascular Exam Cardiovascular Exam: Normal Fundal Exam Fundus: Below Umbilicus and Firm Rectal Exam Rectal Exam: Not Done Exam Perineum: Normal and Repair Intact Extremities Exam Extremity Exam: Normal and Full ROM Back/Spine/Pelvis Exam Back Exam: Normal Skin Exam Skin Exam: Normal Neurological Exam Neurological Exam: Normal Psychiatric Exam Psychiatric Exam: Normal Results Hemoglobin/Hematocrit: Hgb 9.7 g/dL (11.2-15.7) L 05/30/23 13:33 Hct 28.5 % (36.0-46.0) L 05/30/23 13:33 Abnormal Lab Findings: Abnormal Labs 05/30/23 13:33 RBC 2.59 L Hgb 9.7 L Hct 28.5 L MCV 110 H MCH 37.5 H Plt Count 101 L
[2023-06-01 08:41] VITALS: BP 104/68; PULSE 72; RESP 16; TEMP 36.8; O2SAT 98
[2023-06-01] MEDS: Ondansetron O.D.T. 4 MG TABEF PO (09:34)
[2023-06-01] MEDS: lamoTRIgine 100 MG TAB PO (09:34)
[2023-06-01] MEDS: Docusate Sodium 100 MG CAP PO (09:34)
[2023-06-01] MEDS: Pantoprazole 40 MG TABCR PO (09:35)
[2023-06-01 18:19] VITALS: TEMP 37
[2023-06-01 21:11] VITALS: BP 96/64; RESP 16; TEMP 36.7; O2SAT 98
[2023-06-02] MEDS: Levothyroxine 175 MCG TAB PO (03:44)
[2023-06-02 07:55] VITALS: BP 108/64; PULSE 72; RESP 16; TEMP 36.4; O2SAT 99
--- NOTE | 2023-06-02 08:01 | OBPPV_ITS ---
Date of service: 06/02/23 Time of Service: 07:45 Assessment and Plan Assessment and plan (1) care following vaginal delivery: Status: Acute Assessment and plan: 1. Plan for discharge today. Sabrina will stay as boarder Mom due to feeding and continued needs requiring baby to remain hospitalized. 2. I have discussed discharge with her and ordered Ibuprofen that her friend will help to acquire from Pharmacy. 3. Will make sure office arranges 1 week PP visit in office or at a minimum by telehealth. 4. Normal PP course physically to date. SELMA Subjective Subjective Interval history: Sabrina would like to be discharged today as long as they can stay with baby as a boarder Mom due to baby's continued needs for feeding and support. They are doing well but I encouraged Sabrina to start to be more active in doing self care and meeting the care needs of the baby. They have been in bed most of the time since delivery. Sabrina is happy to be able to go outside today. Sabrina has been managing her own medication at home prior to arrival and has those medications in the hospital and will be given back on discharge. I recommended a prescription for Ibuprofen and that has been sent to [facility] and her friend, KAMRYN, will help in picking it up for Sabrina. Bobbi TEJEDA from [facility] has been in to meet with Sabrina and verify her services available and continuing at discharge as of now. SELMA Patient comments: No complaints, Pain well controlled and Tolerating diet Patient's Mood: flat affect at times but is bonding well with baby [place] baby status: Rooming in, Strong Bonding Observed and Other (working with Pediatrics and for best feeding plan, almost 9% weight loss) Exam Physical Exam Vital signs: Temp Pulse Resp BP Pulse Ox 98.1 F 72 16 96/64 L 98 06/01/23 21:11 06/01/23 08:41 06/01/23 21:11 06/01/23 21:11 06/01/23 21:11 Vital Signs Reviewed: Yes Constitutional Constitutional: no acute distress and average body habitus HEENT Exam HEENT Exam: Normal (visual exam) Neck Exam Neck Exam: Normal (full range of motion no enlarged thyroid) Breast Exam normal: Breast Exam: Normal Nipple Exam: Normal Respiratory Exam Respiratory Exam: Normal Cardiovascular Exam Cardiovascular Exam: Normal Abdominal Exam Abdomen: Other (normal) Fundal Exam Fundus: Below Umbilicus and Firm Rectal Exam Rectal Exam: Not Done Exam Perineum: Normal and Repair Intact Extremities Exam Extremity Exam: Normal and Full ROM Back/Spine/Pelvis Exam Back Exam: Normal Skin Exam Skin Exam: Normal Neurological Exam Neurological Exam: Normal Psychiatric Exam Psychiatric Exam: Normal Results Hemoglobin/Hematocrit: Hgb 9.7 g/dL (11.2-15.7) L 05/30/23 13:33 Hct 28.5 % (36.0-46.0) L 05/30/23 13:33 Abnormal Lab Findings: Abnormal Labs 05/30/23 13:33 RBC 2.59 L Hgb 9.7 L Hct 28.5 L MCV 110 H MCH 37.5 H Plt Count 101 L
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
[2023-06-02] MEDS: Dibucaine 1% 28 GM TUBE TP ×2 (08:51→23:24)
[2023-06-02] MEDS: Docusate Sodium 100 MG CAP PO ×3 (08:52→23:14)
[2023-06-02] MEDS: Prenatal Multivitamin w/CA,FE TAB 1 TAB PO (08:53)
[2023-06-02] MEDS: lamoTRIgine 100 MG TAB PO (08:53)
[2023-06-02] MEDS: Pantoprazole 40 MG TABCR PO (08:55)
[2023-06-02] MEDS: Acetaminophen 325 MG TAB 650 MG PO ×3 (09:00→23:15)
[2023-06-02] MEDS: Ibuprofen 600 MG TAB PO ×3 (09:00→23:14)
[2023-06-02 12:10] VITALS: BP 105/77; PULSE 70; RESP 16; TEMP 36.5; O2SAT 99
[2023-06-02 13:49] LABS: HCT 22.4 % (36.0-46.0); HGB 7.7 g/dL (11.2-15.7); MCH 38.7 pg (27.0-33.0); MCHC 34.4 % (32.0-36.0); MCV 113 fL (80-95); MPV 9.7 fL (8.0-11.0); Platelet Count 111 10^3/uL (130-400); RDW 13.7 % (11.7-14.6); RDW-SD 55.8 fL; WBC 11.83 10^3/uL (4.4-10.8)
[2023-06-02 14:06] LABS: RBC 1.99 10^6/uL (3.93-5.22)
[2023-06-02 14:30] LABS: FREE T4 1.25 ng/dL (0.76-1.46)
[2023-06-02] MEDS: Ferrous Sulfate 325 MG TAB PO (16:14)
[2023-06-02 20:10] VITALS: BP 107/55; PULSE 70; RESP 18; TEMP 36.6
[2023-06-02] MEDS: Hamamelis Leaf/Glycerin 100 EACH BOX PR (23:24)
== END 2023-06-02 23:46 | disposition home or self-care (01) | DRG 806 ==
PROVIDERS: Advanced Practice Midwife; Admitting Provider Advanced Practice Midwife; PCP Nurse Practitioner Family; Visit Provider Advanced Practice Midwife
DX: O48.0 Post-term pregnancy (principal); O98.32 Other infections with a predominantly sexual mode of transmission complicating childbirth; Z37.0 Single live birth; O99.12 Other diseases of the blood and blood-forming organs and certain disorders involving the immune mechanism complicating childbirth; O99.324 Drug use complicating childbirth; Z59.01 Sheltered homelessness; O99.02 Anemia complicating childbirth; O99.284 Endocrine, nutritional and metabolic diseases complicating childbirth; E03.9 Hypothyroidism, unspecified; Z3A.41 41 weeks gestation of pregnancy; D69.6 Thrombocytopenia, unspecified; F12.90 Cannabis use, unspecified, uncomplicated; A60.00 Herpesviral infection of urogenital system, unspecified; O99.344 Other mental disorders complicating childbirth; O36.5930 Maternal care for other known or suspected poor fetal growth, third trimester, not applicable or unspecified; F31.9 Bipolar disorder, unspecified; Z91.52 Personal history of nonsuicidal self-harm; D53.8 Other specified nutritional anemias; Z59.89 Other problems related to housing and economic circumstances; O75.81 Maternal exhaustion complicating labor and delivery; O70.1 Second degree perineal laceration during delivery; F43.20 Adjustment disorder, unspecified; O43.893 Other placental disorders, third trimester
CPT/HCPCS: 36415; 85027; 86850; 86900; 86901; 59200; 84439; 84443; 88307; 88361; J2003; J3490

== ENCOUNTER 2023-06-05 13:21 | Outpatient (CLI) | payer MEDICAID, SELFPAY | END 2023-06-05 13:58 | LOC: BCD 13:22 → OBS 13:42 | PROVIDERS: PCP Nurse Practitioner Family; Visit Provider Advanced Practice Midwife | DX: Z30.42 Encounter for surveillance of injectable contraceptive (principal) | CPT/HCPCS: 96372; J1050 ==

== ENCOUNTER 2023-07-11 05:24 | Outpatient (CLI) | payer MEDICAID, SELFPAY ==
[2023-07-11 13:23] LABS: HCT 30.3 % (36.0-46.0); HGB 10.3 g/dL (11.2-15.7); MCH 37.5 pg (27.0-33.0); MPV 9.1 fL (8.0-11.0); Platelet Count 215 10^3/uL (130-400); RBC 2.75 10^6/uL (3.93-5.22); RDW 10.9 % (11.7-14.6); RDW-SD 44.1 fL; WBC 6.21 10^3/uL (4.4-10.8)
[2023-07-11 13:26] LABS: MCV 110 fL (80-95)
[2023-07-11 14:02] LABS: *AMPHETAMINES SCREEN URINE Negative (Negative); *BARBITURATES SCREEN URINE Negative (Negative); *BENZODIAZEPINES SCREEN URINE Negative (Negative); Cannabinoids THC Positive (Negative); Cocaine Screen,Urine Negative (Negative); METHADONE URINE SCREEN Negative (Negative); OPIATES URINE SCREEN Negative (Negative)
[2023-07-11 14:03] LABS: Tricyclic Antidepressants Negative (Negative)
[2023-07-11 14:14] LABS: TSH (W/Ref FT4) 0.04 uIU/mL (0.36-3.74)
[2023-07-11 14:17] LABS: ETHANOL BLOOD < 3.0 mg/dL (<10)
[2023-07-11 14:35] LABS: FREE T4 1.11 ng/dL (0.76-1.46)
[2023-07-12 12:10] LABS: Fentanyl Scr w/Rfx Confirm Negative ng/mL (<1)
== END 2023-07-11 05:25 | disposition home or self-care (01) ==
PROVIDERS: PCP Nurse Practitioner Family; Visit Provider Advanced Practice Midwife
DX: O99.03 Anemia complicating the puerperium; D69.6 Thrombocytopenia, unspecified; Z39.1 Encounter for care and examination of lactating mother; F19.11 Other psychoactive substance abuse, in remission
CPT/HCPCS: 36415; 80307; 85027; 80320; 84439; 84443

== ENCOUNTER 2023-08-03 05:16 | Outpatient (CLI) | payer MEDICAID, SELFPAY ==
[2023-08-03 09:53] LABS: HCT 35.3 % (36.0-46.0); HGB 11.7 g/dL (11.2-15.7); MCH 36.7 pg (27.0-33.0); MCHC 33.1 % (32.0-36.0); MCV 111 fL (80-95); MPV 8.9 fL (8.0-11.0); Platelet Count 213 10^3/uL (130-400); RBC 3.19 10^6/uL (3.93-5.22); RDW 11.3 % (11.7-14.6); WBC 6.97 10^3/uL (4.4-10.8)
[2023-08-03 10:55] LABS: TSH (W/Ref FT4) 16.37 uIU/mL (0.36-3.74)
[2023-08-03 11:11] LABS: FREE T4 0.56 ng/dL (0.76-1.46)
[2023-08-03 18:54] LABS: Thyroglobulin Antibody <15 U/mL (<=60); Thyroperoxidase Antibody 593 U/mL (<=60)
== END 2023-08-03 05:17 | disposition home or self-care (01) ==
LOC: LBO 05:16
PROVIDERS: Advanced Practice Midwife; PCP Nurse Practitioner Family; Visit Provider Advanced Practice Midwife
DX: E03.9 Hypothyroidism, unspecified (principal)
CPT/HCPCS: 36415; 85027; 84439; 84443; 86376; 86800

== ENCOUNTER 2023-09-28 16:08 | Emergency (ER) | payer MEDICAID, SELFPAY ==
[2023-09-28 16:08] VITALS: BP 118/71; PULSE 83; RESP 14; TEMP 37; O2SAT 99
--- NOTE | 2023-09-28 16:15 | DI.RAD_ITS ---
Exam(s) XR CHEST 2V PA LATERAL EXAM: XR CHEST 2V PA LATERAL CLINICAL HISTORY: Cough, SOB. TECHNIQUE: 2D digital imaging was performed. COMPARISON: No exams were available for comparison FINDINGS: 2 views: Heart size is normal. The mediastinum is not widened. Left lung is clear. There is slightly increased markings in the medial right lung adjacent to the he art border possible mild infiltrate. However, there does not appear to be confluent infiltrate on th e lateral view. There are no pleural effusions. IMPRESSION: Increased right lung markings as above. Possibly mild infiltrate in right lower lobe or right middle lobe. No pleural effusions. DATA REPOSITORY: RADIATION DOSE DELIVERED:
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
[2023-09-28] MEDS: Albuterol HFA 8 GM 60 PUFF INH IH (16:36)
[2023-09-28] MEDS: Benzonatate 100 MG CAP PO (16:36)
[2023-09-28 17:30] LABS: COVID-19 PCR Negative (Negative); Influenza A PCR Negative (Negative); Influenza B PCR Negative (Negative); RSV PCR Negative (Negative)
[2023-09-28 17:36] LABS: Source Nasopharynx
[2023-09-28] MEDS: Doxycycline Hyclate 100 MG CAP PO (17:57)
[2023-09-28] MEDS: Dexamethasone 10 MG/ML VIAL PO (17:57)
[2023-09-28] MEDS: Doxycycline Hyclate 100 MG, 2 CAPS/BTL PO (17:57)
== END 2023-09-28 17:58 | disposition home or self-care (01) ==
LOC: ER 18:02
PROVIDERS: Emergency Provider Registered Nurse Emergency
DX: J18.9 Pneumonia, unspecified organism (principal); R05.1 Acute cough; R06.02 Shortness of breath
CPT/HCPCS: 87637; 87880; 99283; 71046; 87081; J1100

== ENCOUNTER 2023-12-15 21:26 | Outpatient (REF) | payer MEDICAID, SELFPAY | END 2023-12-15 21:27 | disposition home or self-care (01) | LOC: LBN 21:26 | PROVIDERS: Visit Provider Physician Assistant Medical | DX: L08.9 Local infection of the skin and subcutaneous tissue, unspecified (principal); B95.62 Methicillin resistant Staphylococcus aureus infection as the cause of diseases classified elsewhere | CPT/HCPCS: 87077; 87070; 87186; 87205 ==